=== PATIENT | male | born 1950 | race Caucasian/White ===

== ENCOUNTER 2018-03-01 13:55 | Emergency (ER) | payer OTHER ==
[~2018-03-01] VITALS: Ht 170.2 cm; Wt 90.0 kg
[~2018-03-01 13:55] MED LIST: AMOX500C PO; ATEN-102 PO; LINE150S PO; OMEP20TA PO
[2018-03-01 14:06] VITALS: BP 141/74; PULSE 80; RESP 17; TEMP 98.7; O2SAT 99
[2018-03-01 15:37] LABS: BASOPHIL # 0.1 TH/MM3 (0-0.2); BASOPHIL % 1.3 % (0.0-2.0); EOSINOPHIL # 0.4 TH/MM3 (0-0.4); EOSINOPHIL % 5.6 % (0.0-4.0); HEMATOCRIT 39.8 % (39.0-51.0); HEMOGLOBIN 14.2 GM/DL (13.0-17.0); LYMPHOCYTE # 2.5 TH/MM3 (1.0-4.8); MEAN CELL VOLUME 88.6 FL (80.0-100.0); MEAN CORPUSCULAR HEMOGLOBIN 31.6 PG (27.0-34.0); MEAN CORPUSCULAR HGB CONC 35.7 % (32.0-36.0); MEAN PLATELET VOLUME 7.7 FL (7.0-11.0); MONO % 9.1 % (0.0-8.0); MONOCYTE # 0.6 TH/MM3 (0-0.9); PLATELET COUNT 226 TH/MM3 (150-450); RED BLOOD COUNT 4.49 MIL/MM3 (4.50-5.90); RED CELL DISTRIBUTION WIDTH 13.4 % (11.6-17.2); WHITE BLOOD COUNT 6.6 TH/MM3 (4.0-11.0)
[2018-03-01 15:50] LABS: BILIRUBIN, URINE NEG (NEG); BLOOD, URINE NEG (NEG); GLUCOSE,URINE NEG (NEG); KETONE, URINE NEG (NEG); NITRITE,URINE NEG (NEG); URINE COLOR YELLOW (YELLW/STRAW); URINE LEUKOCYTE ESTERASE NEG (NEG)
[2018-03-01] MEDS ORDERED: OMEP20TA93 PO (16:05)
[2018-03-01] MEDS ORDERED: MELO15TA20 PO (16:05)
[2018-03-01] MEDS ORDERED: GABA300C5 PO (16:05)
[2018-03-01] MEDS ORDERED: ATEN50TA PO (16:05)
[2018-03-01] MEDS ORDERED: CYCL10TA PO (16:05)
[2018-03-01] MEDS ORDERED: SIMV40TA PO (16:05)
--- NOTE | 2018-03-01 16:07 | PD ---
HPI Chief Complaint: Complaint Time Seen by Provider: 15:59 Travel History International Travel<30 days: No Contact w/Intl Traveler<30days: No Traveled to known affect area: No History of Present Illness HPI She comes in complaining of 3 day history of left flank pain started in the back radiated towards the front. Patient states that he has had a previous history of kidney infections and 1 location of kidney stones. Patient denies any aggravating or alleviating factors. Patient denies any associated factors such as fever, rash, headache, neck pain, chest pain, or any radiation down legs , also denies any vomiting or diarrhea, also denies any urinary or fecal incontinence. Past medical history significant for cholecystectomy appendectomy, hiatal hernia , chronic back problems, hepatitis C history, depression history PFS Past Medical History Depression: Yes Cancer: Yes (colon) Cardiovascular Problems: No Diabetes: No Endocrine: No Genitourinary: No Hepatitis: Yes (HEPATITIS C) Hiatal Hernia: Yes Hypertension: Yes Immune Disorder: Yes (hep c hx) Musculoskeletal: Yes Neurologic: No Psychiatric: No Reproductive: No Respiratory: No Influenza Vaccination: Yes Past Surgical History Abdominal Surgery: Yes (appendectomy;gallbladder) Appendectomy: Yes () Cholecystectomy: Yes (1999) Social History Alcohol Use: No Tobacco Use: No Substance Use: No Allergies-Medications (Allergen,Severity, Reaction): Coded Allergies: *MDRO Multi-Drug Resistant Organism (Verified Adverse Reaction, Unknown, ) MRSA finger wound 08/2015 Reported Meds & Prescriptions Reported Meds & Active Scripts Active Reported Flexeril (Cyclobenzaprine HCl) 10 Mg Tab 10 Mg PO TID Gabapentin Unknown Strength Cap Unknown Dose PO TID Meloxicam 15 Mg Tab 15 Mg PO DAILY Simvastatin 40 Mg Tab 40 Mg PO HS Omeprazole 20 Mg Tab 20 Mg PO DAILY Atenolol 50 Mg Tab 50 Mg PO DAILY Review of Systems General / Constitutional: No: Fever Eyes: No: Visual changes HENT: No: Headaches Cardiovascular: No: Chest Pain or Discomfort Respiratory: No: Shortness of Breath Gastrointestinal: No: Abdominal Pain Genitourinary: Positive: Flank Pain Musculoskeletal: No: Pain Skin: No Rash Neurologic: No: Weakness Psychiatric: No: Depression Endocrine: No: Polydipsia Hematologic/Lymphatic: No: Easy Bruising Physical Exam Narrative GENERAL: Of note there is no evidence of any vesicular rash or anything to suggest shingles SKIN: Warm and dry. HEAD: Atraumatic. Normocephalic. EYES: Pupils equal and round. No scleral icterus. No injection or drainage. ENT: No nasal bleeding or discharge. Mucous membranes pink and moist. NECK: Trachea midline. No JVD. CARDIOVASCULAR: Regular rate and rhythm. RESPIRATORY: No accessory muscle use. Clear to auscultation. Breath sounds equal bilaterally. GASTROINTESTINAL: Abdomen soft, non-tender, nondistended. MUSCULOSKELETAL: Extremities without clubbing, cyanosis, or edema. No obvious deformities. NEUROLOGICAL: Awake and alert. No obvious cranial nerve deficits. Motor grossly within normal limits. Five out of 5 muscle strength in the arms and legs. Normal speech. PSYCHIATRIC: Appropriate mood and affect; insight and judgment normal. Data Data Last Documented VS Vital Signs Date Time Temp Pulse Resp B/P (MAP) Pulse Ox O2 Delivery O2 Flow Rate FiO2 03/01/18 14:06 98.7 80 17 141/74 (96) 99 Orders Orders Complete Blood Count With Diff (03/01/18 14:24) Comprehensive Metabolic Panel (03/01/18 14:24) Lipase (03/01/18 14:24) Urinalysis - C+S If Indicated (03/01/18 14:24) Ct Abd/Pel W/O Iv Contrast (03/01/18 16:08) Iv Access Insert/Monitor (03/01/18 16:08) Ecg Monitoring (03/01/18 16:08) Oximetry (03/01/18 16:08) NPO (03/01/18 16:08) Morphine Inj (Morphine Inj) (03/01/18 16:15) Ondansetron Inj (Zofran Inj) (03/01/18 16:15) Sodium Chloride 0.9% Flush (Ns Flush) (03/01/18 16:15) Ketorolac Inj (Toradol Inj) (03/01/18 16:15) Labs Laboratory Tests Test 03/01/18 14:35 White Blood Count 6.6 TH/MM3 Red Blood Count 4.49 MIL/MM3 Hemoglobin 14.2 GM/DL Hematocrit 39.8 % Mean Corpuscular Volume 88.6 FL Mean Corpuscular Hemoglobin 31.6 PG Mean Corpuscular Hemoglobin Concent 35.7 % Red Cell Distribution Width 13.4 % Platelet Count 226 TH/MM3 Mean Platelet Volume 7.7 FL Neutrophils (%) (Auto) 46.0 % Lymphocytes (%) (Auto) 38.0 % Monocytes (%) (Auto) 9.1 % Eosinophils (%) (Auto) 5.6 % Basophils (%) (Auto) 1.3 % Neutrophils # (Auto) 3.0 TH/MM3 Lymphocytes # (Auto) 2.5 TH/MM3 Monocytes # (Auto) 0.6 TH/MM3 Eosinophils # (Auto) 0.4 TH/MM3 Basophils # (Auto) 0.1 TH/MM3 CBC Comment DIFF FINAL Differential Comment Urine Color YELLOW Urine Turbidity CLEAR Urine pH 7.0 Urine Specific [place] 1.010 Urine Protein NEG mg/dL Urine Glucose (UA) NEG mg/dL Urine Ketones NEG mg/dL Urine Occult Blood NEG Urine Nitrite NEG Urine Bilirubin NEG Urine Urobilinogen LESS THAN 2.0 MG/DL Urine Leukocyte Esterase NEG Urine RBC LESS THAN 1 /hpf Microscopic Urinalysis Comment CULT NOT INDICATED Blood Urea Nitrogen 13 MG/DL Creatinine 0.95 MG/DL Random Glucose 109 MG/DL Total Protein 7.6 GM/DL Albumin 4.0 GM/DL Calcium Level 9.1 MG/DL Alkaline Phosphatase 70 U/L Aspartate Amino Transf (AST/SGOT) 31 U/L Alanine Aminotransferase (ALT/SGPT) 28 U/L Total Bilirubin 0.5 MG/DL Sodium Level 139 MEQ/L Potassium Level 4.0 MEQ/L Chloride Level 106 MEQ/L Carbon Dioxide Level 28.4 MEQ/L Anion Gap 5 MEQ/L Estimat Glomerular Filtration Rate 79 ML/MIN Lipase 140 U/L [facility] Medical Decision Making Medical Screen Exam Complete: Yes Emergency Medical Condition: Yes Medical Record Reviewed: Yes Differential Diagnosis Shingles versus Mando versus kidney stones versus colitis versus diverticulitis Narrative Course UA shows no evidence of any UTI CBC shows no leukocytosis, no anemia, and no abnormal platelet count, also no left shift. Chemistry shows normal electrolytes, normal kidney liver and pancreatic functions. Patient will be signed out to incoming physician pending CT results and disposition Diagnosis Primary Impression: LEFT Flank pain NOS Musa Crabtree MD Mar 01, 2018 16:07
[2018-03-01 16:11] LABS: AST (GOT) 31 U/L (15-37); BICARBONATE 28.4 MEQ/L (21.0-32.0); BLOOD UREA NITROGEN 13 MG/DL (7-18); CALCIUM 9.1 MG/DL (8.5-10.1); CHLORIDE 106 MEQ/L (98-107); CREATININE 0.95 MG/DL (0.60-1.30); GLOMERULAR FILTRATION RATE 79 ML/MIN (>89); GLUCOSE,RANDOM 109 MG/DL (74-106); SODIUM (NA) 139 MEQ/L (136-145)
[2018-03-01 16:14] LABS: ALKALINE PHOSPHATASE 70 U/L (45-117); ALT (GPT) 28 U/L (12-78); TOTAL BILIRUBIN ADULT 0.5 MG/DL (0.2-1.0); TOTAL PROTEIN 7.6 GM/DL (6.4-8.2)
[2018-03-01] MEDS ORDERED: ONDANSETRON HCL 4 MG/2 ML VIAL IVP ONE (16:15)
[2018-03-01] MEDS ORDERED: SODIUM CHLORIDE 0.9% FLUSH 10 ML FLUSH IV FLUSH PRN (16:15)
[2018-03-01] MEDS ORDERED: MORPHINE SULFATE 4 MG/ML INJ IV PUSH ONE (16:15)
[2018-03-01] MEDS ORDERED: KETOROLAC TROMETHAMINE 30 MG/ML (IVP) VIAL IV PUSH ONE (16:15)
[2018-03-01 17:00] VITALS: BP 158/78; PULSE 82; RESP 16; O2SAT 98
--- NOTE | 2018-03-01 17:53 | RADRPT ---
EXAM DATE/TIME: 03/01/2018 16:58 [place] COMPARISON: No previous studies available for comparison. INDICATIONS : Left flank pain and urinary frequency ORAL CONTRAST: No oral contrast ingested. RADIATION DOSE: 11.53 CTDIvol (mGy) MEDICAL HISTORY : Hypertension. Hernia, hiatal. Hepatitis C.Colon cancer SURGICAL HISTORY : Cholecystectomy. Appendectomy. ENCOUNTER: Initial ACUITY: 4 - 6 days PAIN SCALE: 8/10 LOCATION: Left Abdomen TECHNIQUE: Volumetric scanning of the abdomen and pelvis was performed. Using automated exposure control and ad justment of the mA and/or kV according to patient size, radiation dose was kept as low as reasonably achievable to obtain optimal diagnostic quality images. DICOM format image data is available electro nically for review and comparison. FINDINGS: LOWER LUNGS: The visualized lower lungs are clear. LIVER: Homogeneous density without lesion. There is no dilation of the biliary tree. No calcified gallston es. SPLEEN: Normal size without lesion. PANCREAS: Within normal limits. KIDNEYS: Normal in size and shape. There is a tiny 3 mm calcified nonobstructing right renal calculus. There is a complex cystic mass arising from the upper pole of the right kidney measuring 3.7 cm in size. Th ere is no hydronephrosis. ADRENAL GLANDS: Within normal limits. VASCULAR: There is no aortic aneurysm. BOWEL/MESENTERY: Uncomplicated colonic diverticulosis is noted. ABDOMINAL WALL: Within normal limits. RETROPERITONEUM: There is no lymphadenopathy. BLADDER: No wall thickening or mass. REPRODUCTIVE: The prostate is prominent with central calcifications. INGUINAL: There is no lymphadenopathy or hernia. MUSCULOSKELETAL: Degenerative changes are noted throughout the thoracolumbar spine. There is mild chronic compression deformity involving L1. CONCLUSION: 1. 3 mm calcified nonobstructing right renal calculus. 2. 3.7 cm upper pole complex cystic right renal mass. 3. No acute obstructive uropathy. 4. Enlarged prostate with central calcifications. 5. Uncomplicated colonic diverticulosis. 6. Degenerative changes throughout the thoracolumbar spine. 7. Mild chronic compression deformity involving L1. Gurpreet Vogel MD on March 01, 2018 at 17:42 Board Certified Radiologist. This report was verified electronically.
[2018-03-01 18:46] VITALS: RESP 16; O2SAT 98
--- NOTE | 2018-03-01 19:04 | PD ---
Data Data Last Documented VS Vital Signs Date Time Temp Pulse Resp B/P (MAP) Pulse Ox O2 Delivery O2 Flow Rate FiO2 03/01/18 18:46 16 98 Room Air 03/01/18 14:06 98.7 80 141/74 (96) Orders Orders Complete Blood Count With Diff (03/01/18 14:24) Comprehensive Metabolic Panel (03/01/18 14:24) Lipase (03/01/18 14:24) Urinalysis - C+S If Indicated (03/01/18 14:24) Ct Abd/Pel W/O Iv Contrast (03/01/18 16:08) Iv Access Insert/Monitor (03/01/18 16:08) Ecg Monitoring (03/01/18 16:08) Oximetry (03/01/18 16:08) NPO (03/01/18 16:08) Morphine Inj (Morphine Inj) (03/01/18 16:15) Ondansetron Inj (Zofran Inj) (03/01/18 16:15) Sodium Chloride 0.9% Flush (Ns Flush) (03/01/18 16:15) Ketorolac Inj (Toradol Inj) (03/01/18 16:15) Labs Laboratory Tests Test 03/01/18 14:35 White Blood Count 6.6 TH/MM3 Red Blood Count 4.49 MIL/MM3 Hemoglobin 14.2 GM/DL Hematocrit 39.8 % Mean Corpuscular Volume 88.6 FL Mean Corpuscular Hemoglobin 31.6 PG Mean Corpuscular Hemoglobin Concent 35.7 % Red Cell Distribution Width 13.4 % Platelet Count 226 TH/MM3 Mean Platelet Volume 7.7 FL Neutrophils (%) (Auto) 46.0 % Lymphocytes (%) (Auto) 38.0 % Monocytes (%) (Auto) 9.1 % Eosinophils (%) (Auto) 5.6 % Basophils (%) (Auto) 1.3 % Neutrophils # (Auto) 3.0 TH/MM3 Lymphocytes # (Auto) 2.5 TH/MM3 Monocytes # (Auto) 0.6 TH/MM3 Eosinophils # (Auto) 0.4 TH/MM3 Basophils # (Auto) 0.1 TH/MM3 CBC Comment DIFF FINAL Differential Comment Urine Color YELLOW Urine Turbidity CLEAR Urine pH 7.0 Urine Specific [place] 1.010 Urine Protein NEG mg/dL Urine Glucose (UA) NEG mg/dL Urine Ketones NEG mg/dL Urine Occult Blood NEG Urine Nitrite NEG Urine Bilirubin NEG Urine Urobilinogen LESS THAN 2.0 MG/DL Urine Leukocyte Esterase NEG Urine RBC LESS THAN 1 /hpf Microscopic Urinalysis Comment CULT NOT INDICATED Blood Urea Nitrogen 13 MG/DL Creatinine 0.95 MG/DL Random Glucose 109 MG/DL Total Protein 7.6 GM/DL Albumin 4.0 GM/DL Calcium Level 9.1 MG/DL Alkaline Phosphatase 70 U/L Aspartate Amino Transf (AST/SGOT) 31 U/L Alanine Aminotransferase (ALT/SGPT) 28 U/L Total Bilirubin 0.5 MG/DL Sodium Level 139 MEQ/L Potassium Level 4.0 MEQ/L Chloride Level 106 MEQ/L Carbon Dioxide Level 28.4 MEQ/L Anion Gap 5 MEQ/L Estimat Glomerular Filtration Rate 79 ML/MIN Lipase 140 U/L MDM Supervised Visit with CLAUDIA: No Narrative Course This case is checked out to me by the day shift physician. I have reevaluated the patient and reviewed the entirety of the workup. We discussed the incidental findings on his CT scan. There is no etiology of his 6 days of left flank pain but there are some incidental findings. He should review this with his [facility] and he agrees to do so. His urine is clean and labs are normal. When I reevaluated him he is sitting comfortably in the bed reading a book. He does not look to be in acute pain at this time. Stable for outpatient follow-up Diagnosis Primary Impression: LEFT Flank pain NOS Additional Instruction: Follow-up with [place] physician Med/Other Pt SpecificInfo: Other Disposition: 01 DISCHARGE HOME Condition: Stable Karson Gomse MD Mar 01, 2018 19:04
[2018-03-01 19:09] VITALS: BP 166/82
== END 2018-03-01 19:11 | disposition home or self-care (01) ==
LOC: NEPD 13:55
DX: R10.9 Unspecified abdominal pain (principal); N20.0 Calculus of kidney; I10 Essential (primary) hypertension; B19.20 Unspecified viral hepatitis C without hepatic coma; Z87.442 Personal history of urinary calculi
CPT/HCPCS: 74176; 80053; 81001; 83690; 85025; 96374; 96375; 99284; J1885; J2270; J2405

== ENCOUNTER 2019-01-04 10:15 | Inpatient (IN) ==
--- NOTE | 2019-01-04 10:32 | ED ---
HPI General Chief Complaint: Neuro Symptoms/Deficit Stated Complaint: Left side weakness complaint Time Seen by Provider: 01/04/19 10:31 Source: patient Mode of arrival: EMS Limitations: altered mental status History of Present Illness HPI Narrative: 68-year-old male presents for evaluation of 3-day of headache, left arm and leg weakness, generalized weakness. Location: Reports left arm and left leg Severity: moderate Quality: Reports weak Context: Reports sudden onset Associated symptoms: Reports confusion, headaches, nausea/vomiting and weakness ; Denies chest pain, cough, diaphoresis, fever/chills, vertigo, seizures, shortness of breath and syncope Related Data Home Medications Medication Instructions Recorded Confirmed atenolol 25 mg PO DAILY 01/04/19 01/04/19 gabapentin 600 mg PO TID 01/04/19 01/04/19 meloxicam 7.5 mg PO DAILY 01/04/19 01/04/19 omeprazole 20 mg PO DAILY 01/04/19 01/04/19 simvastatin 20 mg PO QPM 01/04/19 01/04/19 terazosin 4 mg PO DAILY 01/04/19 01/04/19 tramadol 50 mg PO Q6H PRN 01/04/19 01/04/19 zolpidem 10 mg PO HS 01/04/19 01/04/19 Allergies Allergy/AdvReac Type Severity Reaction Status Date / Time No Known Allergies Allergy Verified 01/04/19 10:31 Review of Systems ROS: all other systems reviewed are negative PMFSH History History Provided By: Patient Medical History Medical History Anxiety (Acute) BPH (benign prostatic hyperplasia) (Acute) Colon cancer (Acute) Depression (Acute) Diverticulosis (Acute) GERD (gastroesophageal reflux disease) (Acute) HTN (hypertension) (Acute) Osteoarthritis (Acute) Arthralgia (Acute) Carotid artery stenosis (Acute) Hepatitis C (Acute) Kidney stones (Acute) Lipoma (Acute) Surgical History Surgical History History of cholecystectomy (Acute) Social History Social History Substance History: No History of Abuse Smoking Status: Former smoker Tobacco Type: Cigarettes How Often Do You Have a Drink Containing Alcohol: Never Recent Travel in [facility] within the Last 8 Weeks: No Recent Out of Country Travel within the Last 8 Weeks: No Exam Narrative Exam Narrative: GENERAL: Awake, alert, difficulty following commands SKIN: Focused skin assessment warm/dry. HEAD: Atraumatic. Normocephalic. EYES: Pupils equal and round. No scleral icterus. No injection or drainage. ENT: No nasal bleeding or discharge. Mucous membranes pink and moist. NECK: Trachea midline. No JVD. CARDIOVASCULAR: Regular rate and rhythm. No murmur appreciated. RESPIRATORY: No accessory muscle use. Clear to auscultation. Breath sounds equal bilaterally. GASTROINTESTINAL: Abdomen soft, non-tender, nondistended. Hepatic and splenic margins not palpable. MUSCULOSKELETAL: No obvious deformities. No clubbing. No cyanosis. No edema. NEUROLOGICAL: Awake and alert. No obvious cranial nerve deficits. 3 out of 5 strength left upper and lower extremities and 4 out of 5 strength right upper and lower extremities, slight word finding difficulty Course Initial Documented Vital Signs Pulse Rate 63 01/04/19 10:26 Respiratory Rate 12 01/04/19 10:26 Blood Pressure 166/83 H 01/04/19 10:26 Pulse Oximetry 99 01/04/19 10:26 Last Documented Vital Signs Pulse Rate 63 01/04/19 14:04 Respiratory Rate 16 01/04/19 14:04 Blood Pressure 127/70 01/04/19 14:04 Pulse Oximetry 97 01/04/19 14:33 NIH Stroke Scale NIH Stroke Scale Level of Consciousness: 1-Drowsy Orientation Questions: 0-Answers both correct Responds to Commands: 0-Both tasks correct Gaze Eye Movement: 1-Partial gaze palsy Visual [place]: 1-Partial hemianopia Facial Movement: 2-Partial facial palsy Motor Functions Arm LEFT: 2-Falls before 10 seconds Motor Functions Arm RIGHT: 0-No drift Motor Functions Leg LEFT: 2-Falls before 5 seconds Motor Functions Leg RIGHT: 3-No effort against gravity Limb Ataxia: 0-No ataxia Sensory Loss: 1-Mild sensory loss Best Language: 1-Mild aphasia Articulation: 0-Normal Extinction or Inattention Sensory: 0-Absent Total: [address] [facility] Narrative Medical decision making narrative: 68-year-old male presents for evaluation of left-sided weakness for greater than 48 hours. Patient is outside the window for TPA and is also outside the window for thrombectomy. Patient also complains of headache and vertiginous symptoms. Concern for intracranial hemorrhage, CVA, vertebral artery dissection, carotid artery dissection. Symptoms could also represent complex migraine. CT head and CTA head and neck ordered. CT/CTA negative for acute findings. Laboratory work unremarkable. Will admit patient for MRI brain to rule out stroke. Patient also complains of back pain and family notes he may have had a syncopal episode. Medical Screen Exam Complete: Yes Emergency Medical Condition: Yes Lab Data Result diagrams: 01/04/19 10:40 01/04/19 10:40 Lab Results 01/04/19 01/04/19 01/04/19 Range/Units 10:40 10:40 10:40 WBC 7.7 (4.0-11.0) th/mm3 RBC 4.63 (4.50-5.90) mil/mm3 Hgb 14.7 (13.0-17.0) gm/dL Hct 42.8 (39.0-51.0) % MCV 92.5 (80.0-100.0) fL MCH 31.7 (27.0-34.0) pg MCHC 34.3 (32.0-36.0) % RDW 13.8 (11.6-17.2) % Plt Count 230 (150-450) th/mm3 MPV 7.3 (7.0-11.0) fL Neut % (Auto) 76.5 H (16.0-70.0) % Lymph % (Auto) 15.9 (9.0-44.0) % [place] % (Auto) 5.0 (0.0-8.0) % Eos % (Auto) 1.6 (0.0-4.0) % Baso % (Auto) 1.0 (0.0-2.0) % Neut # (Auto) 5.9 (1.8-7.7) th/mm3 Lymph # (Auto) 1.2 (1.0-4.8) th/mm3 [place] # (Auto) 0.4 (0.0-0.9) th/mm3 Eos # (Auto) 0.1 (0.0-0.4) th/mm3 Baso # (Auto) 0.1 (0.0-0.2) th/mm3 WBC Differential . Differential Comment Auto diff final PT 10.6 (9.8-11.6) sec INR 1.0 Ratio APTT 24.3 (23.4-31.7) sec Sodium 143 (136-145) meq/L Potassium 3.6 (3.5-5.1) meq/L Chloride 109 H (98-107) meq/L Carbon Dioxide 27.0 (21.0-32.0) meq/L Anion Gap 7 (5-15) meq/L BUN 24 H (7-18) mg/dL Creatinine 0.75 (0.60-1.30) mg/dL Estimated GFR Greater than 89 (>89) mL/min POC Glucose (68-110) mg/dl Random Glucose 135 H (74-106) mg/dL Calcium 8.9 (8.5-10.1) mg/dL Total Creatine Kinase 92 (39-308) U/L Troponin I Less than 0.02 L (0.02-0.05) ng/mL Urine Color (Yellw/Straw) Urine Clarity (Clear) Urine pH (5.0-8.5) Ur Specific [place] (1.002-1.035) Urine Protein (Neg-Trace) mg/dL Urine Glucose (UA) (Negative) mg/dL Urine Ketones (Negative) mg/dL Urine Occult Blood (Negative) Urine Nitrate (Negative) Urine Bilirubin (Negative) Urine Urobilinogen (Less than 2) mg/dL Ur Leukocyte Esterase (Negative) Urine RBC (0-3) /hpf Urine WBC (0-5) /hpf Amorphous Sediment (None) /hpf Urine Mucus (Occasional) /lpf Micro UA Comment Ur Microscopic Review Urine Culture Comments 01/04/19 01/04/19 Range/Units 10:45 10:49 WBC (4.0-11.0) th/mm3 RBC (4.50-5.90) mil/mm3 Hgb (13.0-17.0) gm/dL Hct (39.0-51.0) % MCV (80.0-100.0) fL MCH (27.0-34.0) pg MCHC (32.0-36.0) % RDW (11.6-17.2) % Plt Count (150-450) th/mm3 MPV (7.0-11.0) fL Neut % (Auto) (16.0-70.0) % Lymph % (Auto) (9.0-44.0) % [place] % (Auto) (0.0-8.0) % Eos % (Auto) (0.0-4.0) % Baso % (Auto) (0.0-2.0) % Neut # (Auto) (1.8-7.7) th/mm3 Lymph # (Auto) (1.0-4.8) th/mm3 [place] # (Auto) (0.0-0.9) th/mm3 Eos # (Auto) (0.0-0.4) th/mm3 Baso # (Auto) (0.0-0.2) th/mm3 WBC Differential Differential Comment PT (9.8-11.6) sec INR Ratio APTT (23.4-31.7) sec Sodium (136-145) meq/L Potassium (3.5-5.1) meq/L Chloride (98-107) meq/L Carbon Dioxide (21.0-32.0) meq/L Anion Gap (5-15) meq/L BUN (7-18) mg/dL Creatinine (0.60-1.30) mg/dL Estimated GFR (>89) mL/min POC Glucose 141 H (68-110) mg/dl Random Glucose (74-106) mg/dL Calcium (8.5-10.1) mg/dL Total Creatine Kinase (39-308) U/L Troponin I (0.02-0.05) ng/mL Urine Color Yellow (Yellw/Straw) Urine Clarity Hazy H (Clear) Urine pH 7.0 (5.0-8.5) Ur Specific [place] 1.025 (1.002-1.035) Urine Protein Negative (Neg-Trace) mg/dL Urine Glucose (UA) Negative (Negative) mg/dL Urine Ketones 20 (Negative) mg/dL Urine Occult Blood Negative (Negative) Urine Nitrate Negative (Negative) Urine Bilirubin Negative (Negative) Urine Urobilinogen 0.2 (Less than 2) mg/dL Ur Leukocyte Esterase Negative (Negative) Urine RBC Less than 1 (0-3) /hpf Urine WBC 1 (0-5) /hpf Amorphous Sediment Few H (None) /hpf Urine Mucus Few H (Occasional) /lpf Micro UA Comment Culture not ind Ur Microscopic Review Not Reportable Urine Culture Comments Culture not ind Imaging Data Radiologist's impression: Head CT 01/04/19 10:29 CONCLUSION: 1. Negative noncontrast CT brain. . Head CTA 01/04/19 10:29 CONCLUSION: 1. Negative CTA Head. . Neck CTA 01/04/19 10:29 CONCLUSION: 1. Negative CTA Carotid. ECG Data Attestation: I personally reviewed and interpreted this ECG as follows: Interpretation: Normal sinus rhythm, rate of 62, no ST or T wave changes Discharge Plan Discharge Disposition Patient Disposition: ED Admit(ED Internal Use Only) Discharge Condition Condition: Stable Discharge Order Discharge Orders: ED Use Only Admit Order (Routine); Ordered 01/04/19 Ordered By: Heather Ellis Discharge Details Diagnosis: Acute left-sided muscle weakness Physicians Team ED Provider: Heather Ellis Primary Care Provider: [facility]ician [facility] Attending Provider: Roxane Haley Other Providers: Brent Marcus Discharge Interventions Interventions: Vital Signs Last Done: 01/04/19 14:04 Status ED Status: Admitted Observation Patient
[2019-01-04 11:19] LABS: Baso # (Auto) 0.1 th/mm3 (0.0-0.2); Eos # (Auto) 0.1 th/mm3 (0.0-0.4); Eos % (Auto) 1.6 % (0.0-4.0); Hematocrit 42.8 % (39.0-51.0); Hemoglobin 14.7 gm/dL (13.0-17.0); Lymph # (Auto) 1.2 th/mm3 (1.0-4.8); Lymph % (Auto) 15.9 % (9.0-44.0); Mean Corpuscular HGB Conc 34.3 % (32.0-36.0); Mean Corpuscular Hemoglobin 31.7 pg (27.0-34.0); Mean Corpuscular Volume 92.5 fL (80.0-100.0); Mean Platelet Volume 7.3 fL (7.0-11.0); Mono # (Auto) 0.4 th/mm3 (0.0-0.9); Neut # (Auto) 5.9 th/mm3 (1.8-7.7); Neut % (Auto) 76.5 % (16.0-70.0); Platelet Count 230 th/mm3 (150-450); Red Blood Count 4.63 mil/mm3 (4.50-5.90); Red Cell Distribution Width 13.8 % (11.6-17.2); White Blood Count 7.7 th/mm3 (4.0-11.0)
[2019-01-04 11:31] LABS: Amorphous Sediment,Urine Few /hpf; Bilirubin,Urine Negative (Negative); Clarity,Urine Hazy (Clear); Color,Urine Yellow (Yellw/Straw); Glucose,Urine (UA) Negative (Negative); Leukocyte Esterase,Urine Negative (Negative); Mucus,Urine Few /lpf (Occasional); Nitrite,Urine Negative (Negative); Specific Gravity,Urine 1.025 (1.002-1.035)
[2019-01-04 11:33] LABS: Urobilinogen,Urine 0.2 mg/dL (Less than 2)
[2019-01-04 11:37] LABS: Activated Partial Thrombo Time 24.3 sec (23.4-31.7); Prothrombin Time 10.6 sec (9.8-11.6)
[2019-01-04 11:42] LABS: Anion Gap 7 meq/L (5-15); Blood Urea Nitrogen 24 mg/dL (7-18); Calcium 8.9 mg/dL (8.5-10.1); Chloride 109 meq/L (98-107); Glomerular Filtration Rate Greater Than 89 mL/min (>89); Glucose,Random 135 mg/dL (74-106); Potassium 3.6 meq/L (3.5-5.1); Sodium 143 meq/L (136-145)
[2019-01-04 11:57] LABS: Creatine Kinase 92 U/L (39-308)
--- NOTE | 2019-01-04 12:26 | CT ---
EXAM DATE: 01/04/2019 12:12 PM EST AGE/SEX: 68 years / Male INDICATIONS: Left sided weakness, nausea and headache since Tuesday. CLINICAL DATA: This is the patient's initial encounter. Patient reports that signs and symptoms have been present for 2 days and indicates a pain score of 9/10. MEDICAL/SURGICAL HISTORY: Hypertension. Carcinoma, colon. None. RADIATION DOSE: 52.83 CTDI (mGy) COMPARISON: No prior exams available for comparison. TECHNIQUE: CT of the head without contrast. Using automated exposure control and adjustment of the mA and/or kV according to patient size, radiation dose was kept as low as reasonably achievable to ob tain optimal diagnostic quality images. DICOM format image data is available electronically for revi ew and comparison. FINDINGS: Cerebrum: The ventricles are normal for age. No evidence of midline shift, mass lesion, hemorrhage or acute infarction. No extraaxial fluid collections are seen. Posterior Fossa: The cerebellum and brainstem are intact. The 4th ventricle is midline. The cerebe llopontine angle is unremarkable. Extracranial: The visualized portion of the orbits is intact. Skull: The calvaria is intact. No evidence of skull fracture. CONCLUSION: 1. Negative noncontrast CT brain. . Electronically signed by: Ian Ramirez MD Board Certified Radiologist 01/04/2019 12:25 PM EST
--- NOTE | 2019-01-04 13:07 | CT ---
EXAM DATE: 01/04/2019 12:32 PM EST AGE/SEX: 68 years / Male INDICATIONS: Left sided weakness with nausea and headache sine Tuesday. CLINICAL DATA: This is the patient's initial encounter. Patient reports that signs and symptoms have been present for 2 days and indicates a pain score of 9/10. MEDICAL/SURGICAL HISTORY: Hypertension. Carcinoma, colon. carotid stenosis None. RADIATION DOSE: 10.92 CTDI (mGy) ; Combined studies COMPARISON: [facility], CT HEAD W/O CONTRAST, 01/04/2019. . TECHNIQUE: Volumetric scanning was performed using a multi-row detector CT scanner during bolus infu arsh of 100 ml Omnipaque 350 (iohexol) nonionic water-soluble contrast as a cumulative dose for mult iple exams. The data was post processed with a variety of visualization algorithms including full v olume maximum intensity projection, multi-planar sliding thin slab reformation, curved planar reforma tion, and surface rendering techniques. Using automated exposure control and adjustment of the mA an d/or kV according to patient size, radiation dose was kept as low as reasonably achievable to obtain optimal diagnostic quality images. DICOM format image data is available electronically for review an d comparison. FINDINGS: There is excellent visualization of the major intracranial arteries out to the second-order branch ve ssels. There is no evidence for aneurysm, vessel truncation or stenosis, and no evidence for vascula r malformation. CONCLUSION: 1. Negative CTA Head. . Electronically signed by: Ian Barboza MD Board Certified Radiologist 01/04/2019 1:06 PM EST
--- NOTE | 2019-01-04 13:24 | CT ---
EXAM DATE: 01/04/2019 12:32 PM EST AGE/SEX: 68 years / Male INDICATIONS: Left sided weakness, nausea and headache since Tuesday. CLINICAL DATA: This is the patient's initial encounter. Patient reports that signs and symptoms have been present for 2 days and indicates a pain score of 9/10. MEDICAL/SURGICAL HISTORY: Hyperparathyroidism. Carcinoma, colon. carotid stenosis None. RADIATION DOSE: 10.92 CTDI (mGy) ; Combined studies COMPARISON: No prior exams available for comparison. TECHNIQUE: Volumetric scanning was performed using a multirow detector CT scanner during bolus infus ion of 100 ml Omnipaque 350 (iohexol) nonionic water-soluble contrast as a cumulative dose for multi ple exams. The data was postprocessed with a variety of visualization algorithms including full-vol ume maximum intensity projection, multiplanar sliding thin-slab reformation, curved-planar reformatio n, and surface-rendering techniques. Using automated exposure control and adjustment of the mA and/o r kV according to patient size, radiation dose was kept as low as reasonably achievable to obtain opt imal diagnostic quality images. DICOM format image data is available electronically for review and c omparison. FINDINGS: Aortic Arch: There is a three-vessel origin of the great vessels from the aorta. No evidence of ost ial narrowing Right Carotid: The common carotid artery is intact. The carotid bulb has a normal configuration wit hout ulceration or narrowing. The internal carotid artery lumen is smooth without stenosis. The ext ernal carotid artery is intact. Left Carotid: The common carotid artery is intact. The carotid bulb has a normal configuration with out ulceration or narrowing. The internal carotid artery lumen is smooth without stenosis. The exte rnal carotid artery is intact. Vertebrals: The vertebral arteries have a symmetric diameter. No stenotic lesions are seen. Percent stenosis is calculated using the diameter of the stenotic region over the diameter of the nor mal distal internal carotid artery. CONCLUSION: 1. Negative CTA Carotid. Electronically signed by: Ian Barboza MD Board Certified Radiologist 01/04/2019 1:23 PM EST
[2019-01-04] MEDS ORDERED: Aspirin 325 MG Tablet PO ONE (14:18)
[2019-01-04] MEDS ORDERED: Acetaminophen 325 MG Tablet PO PRN (14:31)
[2019-01-04] MEDS ORDERED: Bisacodyl 10 MG Supp RECTAL PRN (14:31)
--- NOTE | 2019-01-04 14:31 | P.HPIM ---
History of Present Illness Primary Care Physician: [facility] Chief Complaint: left sided weakness History of Present Illness: 68 yo male with multiple medical problems came for eval of left sided weakness for the past 3 days progressively getting worse. Patient complaints of 3-day left arm and leg weakness, generalized weakness and headache associated since morning. Weakness seems more in the left leg than the left arm. He also says his left leg feels numb and " buzzing". Says he doesnt have a h/o migraine headaches and is new for him. Says headache is on the top of his head and around the right eye , no change in vision. There is associated confusion, headaches, nausea/vomiting. Denies chest pain, cough, diaphoresis, fever/chills, vertigo, seizures, shortness of breath and syncope. No n/v/d/c. Patient also complaints of chronic back pain. Review of Systems Review of Systems: all other systems reviewed are negative [facility] Medical History Medical History Anxiety (Acute) BPH (benign prostatic hyperplasia) (Acute) Colon cancer (Acute) Depression (Acute) Diverticulosis (Acute) GERD (gastroesophageal reflux disease) (Acute) HTN (hypertension) (Acute) Osteoarthritis (Acute) Arthralgia (Acute) Carotid artery stenosis (Acute) Hepatitis C (Acute) Kidney stones (Acute) Lipoma (Acute) Surgical History Surgical History History of cholecystectomy (Acute) Social History Social History Substance History: No History of Abuse Smoking Status: Former smoker Tobacco Type: Cigarettes How Often Do You Have a Drink Containing Alcohol: Never Recent Travel in [facility] within the Last 8 Weeks: No Recent Out of Country Travel within the Last 8 Weeks: No Immunization History Tetanus Immunization: <5 Years Medications and Allergies Allergies Allergy/AdvReac Type Severity Reaction Status Date / Time No Known Allergies Allergy Verified 01/04/19 10:31 Home Medications Medication Instructions Recorded Confirmed Type atenolol 25 mg PO DAILY 01/04/19 01/04/19 History gabapentin 600 mg PO TID 01/04/19 01/04/19 History meloxicam 7.5 mg PO DAILY 01/04/19 01/04/19 History omeprazole 20 mg PO DAILY 01/04/19 01/04/19 History simvastatin 20 mg PO QPM 01/04/19 01/04/19 History terazosin 4 mg PO DAILY 01/04/19 01/04/19 History tramadol 50 mg PO Q6H PRN 01/04/19 01/04/19 History zolpidem 10 mg PO HS 01/04/19 01/04/19 History Active Medications: Active Medications Sodium Chloride (Ns Flush) 2 ml IV.FLUSH PRN PRN PRN Reason: FLUSH AFTER USING IV ACCESS Last Admin: 01/04/19 14:03 Dose: 2 ml Physical Exam Vital signs: Vital Signs 01/04/19 10:26 01/04/19 10:30 01/04/19 10:31 Pulse Rate 63 63 64 Respiratory Rate 12 17 Blood Pressure 166/83 H Pulse Oximetry 99 99 99 01/04/19 11:53 01/04/19 13:35 01/04/19 14:04 Pulse Rate 68 63 Respiratory Rate 16 16 Blood Pressure 123/64 127/70 Pulse Oximetry 99 100 98 Intake & Output 01/03/19 01/04/19 01/04/19 18:59 06:59 18:59 Weight 74.389 kg Results Labs CBC & Chem 7: 01/04/19 10:40 01/04/19 10:[address] 01/04/19 10:29 CONCLUSION: 1. Negative noncontrast CT brain. . Head CTA 01/04/19 10:29 CONCLUSION: 1. Negative CTA Head. . Neck CTA 01/04/19 10:29 CONCLUSION: 1. Negative CTA Carotid. Caprini VTE Risk Assessment Caprini VTE Risk Assessment: Moderate/High Risk (score >= 2) Caprini Risk Assessment Model: Point Value = 1 Point Value = 2 Point Value = 3 Point Value = 5 Age 41-60 Minor surgery BMI > 25 kg/m2 Swollen legs Varicose veins or History of unexplained or recurrent spontaneous Oral contraceptives or hormone replacement Sepsis (< 1 month) Serious lung disease, including pneumonia (< 1 month) Abnormal pulmonary function Acute myocardial infarction Congestive heart failure (< 1 month) History of inflammatory bowel disease Medical patient at bed rest Age 61-74 Arthroscopic surgery Major open surgery (> 45 min) Laparoscopic surgery (> 45 min) Malignancy Confined to bed (> 72 hours) Immobilizing plaster cast Central venous access Age >= 75 History of VTE Family history of VTE Factor V Leiden Prothrombin [id number] Lupus anticoagulant Anticardiolipin antibodies Elevated serum homocysteine Heparin-induced thrombocytopenia Other congenital or acquired thrombophilia Stroke (< 1 month) Elective arthroplasty Hip, pelvis, or leg fracture Acute spinal cord injury (< 1 month) Prophylaxis Regimen: Total Risk Factor Score Risk Level Prophylaxis Regimen 0-1 Low Early ambulation 2 Moderate Order ONE of the following: *Sequential Compression Device (SCD) *Heparin 5000 units SQ BID 3-4 Higher Order ONE of the following medications: *Heparin 5000 units SQ TID *Enoxaparin/Lovenox 40 mg SQ daily (WT < 150 kg, CrCl > 30 mL/min) *Enoxaparin/Lovenox 30 mg SQ daily (WT < 150 kg, CrCl > 10-29 mL/min) *Enoxaparin/Lovenox 30 mg SQ BID (WT < 150 kg, CrCl > 30 mL/min) AND/OR *Sequential Compression Device (SCD) 5 or more Highest Order ONE of the following medications: *Heparin 5000 units SQ TID (Preferred with Epidurals) *Enoxaparin/Lovenox 40 mg SQ daily (WT < 150 kg, CrCl > 30 mL/min) *Enoxaparin/Lovenox 30 mg SQ daily (WT < 150 kg, CrCl > 10-29 mL/min) *Enoxaparin/Lovenox 30 mg SQ BID (WT < 150 kg, CrCl > 30 mL/min) AND *Sequential Compression Device (SCD) Assessment and Plan Plan 68 yo male with multiple medical problems came for eval of left sided weakness for the past 3 days progressively getting worse. Patient complaints of 3-day of headache, left arm and leg weakness, generalized weakness and associated confusion. . Left sided weakness x 3 days r/o CVA HTN (hypertension) H/of Anxiety / depression BPH Colon cancer GERD (gastroesophageal reflux disease) CT/CTA head and CTA neck reviewed no acute findings Consult neuro EKG reviewed Check A1c and lipid profile Monitor on telemetry Restart home meds as appropriate DVT ppx scd/teds/ lovenox Discussed with the patient, family at bedside, nurse
[2019-01-04] MEDS: Enoxaparin Inj 40 MG/0.4 ML Syringe SQ SCH (15:36)
[2019-01-04] MEDS: Sod Chloride 0.9% Inj 1,000 ML IV.CONT SCH (15:36)
[2019-01-04 15:58] LABS: Chol/HDL Ratio 2.95 Ratio; HDL Cholesterol 50.8 mg/dL (40.0-60.0)
[2019-01-04 16:47] LABS: Hemoglobin A1c 5.8 % (4.3-6.0)
[2019-01-04] MEDS: Gabapentin 300 MG Capsule PO SCH ×2 (17:36→19:34)
[2019-01-04] MEDS ORDERED: Gadobutrol PF 7.5 MMOL/7.5 ML Vial (for RAD) IV.SIG ONE (18:10)
--- NOTE | 2019-01-04 18:33 | MR ---
EXAM DATE: 01/04/2019 6:25 PM EST AGE/SEX: 68 years / Male INDICATIONS: Mass. Left sided weakness, dizziness, and headaches for three days. CLINICAL DATA: This is the patient's initial encounter. Patient reports that signs and symptoms have been present for 3 days and indicates a pain score of 8/10. MEDICAL/SURGICAL HISTORY: Carcinoma, colon. Cholecystectomy. Appendectomy. COMPARISON: [facility], CTA NECK W CONTRAST W 3D, 01/04/2019. . TECHNIQUE: Multiplanar, multisequence MRI examination of the cervical spine was performed without an d with 7 ml Gadavist (gadobutrol) contrast as a single exam dose. FINDINGS: VERTEBRAE: Normal vertebral body height. Homogeneous marrow signal. ALIGNMENT: Slight loss of normal cervical lordosis. Sagittal alignment is otherwise maintained. CORD: Normal configuration and signal. POST FOSSA: The cerebellar tonsils are normal in position. POST-CONTRAST: No abnormal areas of enhancement are seen. C2-C3: Mild left facet hypertrophy. No significant central canal or neural foraminal stenosis. C3-C4: Minimal bilateral uncovertebral osteophytes. No central canal or neural foraminal stenosis. C4-C5: Mild posterior disc osteophytes with mild bilateral facet arthropathy. No significant central canal stenosis. Mild left and [id number] right neural foraminal narrowing. C5-C6: Mild posterior disc osteophytes with mild bilateral facet arthropathy. No significant central canal stenosis. Mild left and moderate severe right neural foraminal narrowing. C6-C7: Posterior disc osteophytes with superimposed central broad-based posterior disc protrusion. Mi ld bilateral facet arthropathy. Mild effacement anterior thecal sac with residual CSF signal anterior to the cord. Moderate bilateral neural foraminal narrowing. C7-T1: No epidural impressions seen. CONCLUSION: 1. No significant abnormal enhancement or evidence for mass as questioned. 2. Multilevel degenerative spondylosis of the cervical spine most notably at C5-6 and C6-7 with resu ltant moderate to severe neural foraminal narrowing at both levels. 3. Please see above for detailed description of each level. Electronically signed by: Akash Britton MD Board Certified Radiologist 01/04/2019 6:32 PM EST
--- NOTE | 2019-01-04 18:35 | MR ---
EXAM DATE: 01/04/2019 6:28 PM EST AGE/SEX: 68 years / Male INDICATIONS: CVA. Left sided weakness, dizziness, and headaches for three days. CLINICAL DATA: This is the patient's initial encounter. Patient reports that signs and symptoms have been present for 3 days and indicates a pain score of 8/10. MEDICAL/SURGICAL HISTORY: Carcinoma, colon. Appendectomy. Cholecystectomy. COMPARISON: [facility] – [place], [place], CT HEAD W/O CONTRAST, 01/04/2019. . TECHNIQUE: Multiplanar, multisequence examination of the brain was performed without and with 7 ml Ga davist (gadobutrol) contrast as a single exam dose. FINDINGS: Cerebrum: The ventricles are normal for age. No evidence of midline shift, mass lesion, hemorrhage or acute infarction. No extraaxial fluid collections are seen. The pituitary gland and suprasellar cistern are normal in configuration. White Matter: Minimal periventricular white matter T2 prolongation. Posterior Fossa: The cerebellum and brainstem are intact. The 4th ventricle is midline. The cerebel lopontine angle is unremarkable. The cerebellar tonsils are normal in position. Diffusion Imaging: No focal areas of restricted diffusion are seen. No evidence of acute infarction . Extracranial: The visualized portions of the orbits and paranasal sinuses are unremarkable. Post Contrast: No abnormal areas of parenchymal or dural enhancement. No evidence of blood-brain ba rrier breakdown. CONCLUSION: 1. Minimal periventricular ischemic white matter demyelination. 2. Otherwise, unremarkable MRI examination of the brain. 3. Specifically, no acute infarction, mass or hemorrhage. Electronically signed by: Akash Britton MD Board Certified Radiologist 01/04/2019 6:34 PM EST
[2019-01-04 19:47] LABS: Alanine Aminotransferase 33 U/L (12-78); Albumin 3.6 g/dL (3.4-5.0); Aspartate Aminotransferase 27 U/L (15-37)
[2019-01-04 20:02] LABS: Alkaline Phosphatase 58 U/L (45-117); Total Protein 6.8 g/dL (6.4-8.2)
[2019-01-04 20:12] LABS: Vitamin B12 853 pg/mL (193-986)
[2019-01-04] MEDS: Senna/Docusate Sodium 8.6/50 MG Tablet PO SCH (20:13)
[2019-01-05] MEDS: Sod Chloride 0.9% Inj 1,000 ML IV.CONT SCH ×2 (01:38→12:01)
[2019-01-05] MEDS ORDERED: Morphine Sulfate Inj 2 MG/ML Vial IV.PUSH ONE (03:59)
[2019-01-05 04:40] LABS: Baso # (Auto) 0.1 th/mm3 (0.0-0.2); Baso % (Auto) 1.4 % (0.0-2.0); Eos # (Auto) 0.4 th/mm3 (0.0-0.4); Eos % (Auto) 6.6 % (0.0-4.0); Hematocrit 39.6 % (39.0-51.0); Hemoglobin 13.6 gm/dL (13.0-17.0); Lymph # (Auto) 2.2 th/mm3 (1.0-4.8); Lymph % (Auto) 35.2 % (9.0-44.0); Mean Corpuscular HGB Conc 34.3 % (32.0-36.0); Mean Corpuscular Hemoglobin 31.1 pg (27.0-34.0); Mean Corpuscular Volume 90.8 fL (80.0-100.0); Mean Platelet Volume 7.3 fL (7.0-11.0); Mono # (Auto) 0.6 th/mm3 (0.0-0.9); Neut # (Auto) 2.9 th/mm3 (1.8-7.7); Neut % (Auto) 46.8 % (16.0-70.0); Platelet Count 201 th/mm3 (150-450); Red Blood Count 4.36 mil/mm3 (4.50-5.90); Red Cell Distribution Width 14.1 % (11.6-17.2); White Blood Count 6.2 th/mm3 (4.0-11.0)
[2019-01-05 05:02] LABS: Anion Gap 6 meq/L (5-15); Carbon Dioxide 26.3 meq/L (21.0-32.0); Chloride 111 meq/L (98-107); Cholesterol 125 mg/dL (120-200); Glomerular Filtration Rate Greater Than 89 mL/min (>89); Glucose,Random 89 mg/dL (74-106); Potassium 4.1 meq/L (3.5-5.1); Sodium 143 meq/L (136-145); Triglycerides 44 mg/dL (42-150)
[2019-01-05 05:24] LABS: Blood Urea Nitrogen 25 mg/dL (7-18); Chol/HDL Ratio 2.97 Ratio; Creatine Kinase 78 U/L (39-308); LDL Cholesterol,Calculated 74 mg/dL (0-99)
--- NOTE | 2019-01-05 08:28 | MB ---
cc: Brent Milligan MD DATE: 01/05/2019 HISTORY OF PRESENT ILLNESS: A 68-year-old right-handed man with hypertension; hypercholesterolemia; hepatitis C, which he has been treated for; kidney stones; asthma; fracture in his low back from a fall off a roof in 2006 and also in his neck; colon cancer polyps that were removed in 2012, no radiation or resection. He has had low back pain and injections; and on Tuesday, he turned the wrong way and had increased back pain 08/30. Then on Tuesday, he had a headache right frontal region, some dizziness, vertigo, and then noticed that his left leg felt numb and then he fell with the vertigo. He was admitted yesterday with what was thought to be left-sided weakness. PAST MEDICAL HISTORY: Anxiety, BPH, colon cancer, depression, diverticulosis, GERD, hypertension, osteoarthritis, arthralgias, carotid artery stenosis, hepatitis C, kidney stones, lipoma as above. MEDICATIONS AT HOME: He is on zolpidem, tramadol 50 q.6 p.r.n., terazosin, simvastatin, omeprazole, meloxicam, gabapentin 600 t.i.d., atenolol. PHYSICAL EXAMINATION: VITAL SIGNS: On exam, sinus rhythm, afebrile, 100/53, 74, 20. NECK: There are no carotid bruits. HEART: Regular rate and rhythm. I did not detect a murmur. NEUROLOGIC: Pupils are equal. Visual ross are full. Extraocular movements intact without nystagmus. Face is symmetric with decreased sensation on the left compared to the right. Pinprick was intact in the occiput on the left. There is no drift. He has normal strength in bilateral deltoid, triceps, finger extensors, iliopsoas, tibialis anterior. DTRs are 2-3+ symmetric at the knees, trace in the upper extremities. Toes withdrew bilaterally. There was no ankle clonus. Tone was normal throughout. Pinprick is lost in the left leg but intact in the left hand. There is no pin level, but he seems to feel pin slightly less on the left side of his posterior thorax. He is not ataxic on [id number]. Speech is fluent. He is not aphasic. DIAGNOSTIC DATA: CBC was normal. Sedimentation rate 3. UA negative. Basic metabolic profile was normal. Calcium 8. LFTs normal. Ammonia normal. CPK, troponin, LDL, B12 all normal. CRP is normal. Coags normal. Sedimentation rate normal. MRI of the cervical spine, which was read as negative. No cord compression. Spondylosis C5, 6, 7. There is no cord compression on the cervical MR on my review. Brain MRI, white matter changes only, otherwise negative. Review of the films, mastoids are clear. Brain images are normal except the ventricles are slightly more prominent than I would like to see. No infarct is noted. No tumors are seen. CTA of the head and neck were normal. Head CTA also normal. No vertebrobasilar disease noted. CT of the brain normal. IMPRESSION AND PLAN: Not sure why the left side of his face is numb. I do not see anything on the MRI for that. His arteries look okay. He has got some pain around his thoracic region now. We will check an MRI of the thoracic and lumbosacral spine. The vertigo is probably a peripheral vestibulopathy. He has a history of hearing loss in the left ear. In fact, he cannot hear finger rub in the left ear, but he can on the right. That is longstanding and he has got some tinnitus. My overall impression was his main problem was the new low back pain and the vertigo. The numbness in his legs is probably from the low back. He has had that before, though it had gone away and now it is back. Make sure there is no thoracic myelopathy. I am not sure why he has got the left-sided facial numbness. We could recheck an MRI of the brain to make sure we did not miss anything as far as the stroke goes, though I think unlikely. To make sure there is nothing in the brainstem causing left face numbness and vertigo, though he really has more of a left face thoracic region and legs, sparing the arm. MD KERRI Caldwell/sondra , 07:49 AM , 07:58 AM
[2019-01-05] MEDS: Atenolol 25 MG Tablet PO SCH (08:40)
[2019-01-05] MEDS: Pantoprazole Sodium 20 MG DR Tablet PO SCH (08:40)
[2019-01-05] MEDS: Senna/Docusate Sodium 8.6/50 MG Tablet PO SCH ×2 (08:40→21:29)
[2019-01-05] MEDS: Gabapentin 300 MG Capsule PO SCH ×2 (08:40→12:00)
--- NOTE | 2019-01-05 10:00 | MR ---
EXAM DATE: 01/05/2019 9:52 AM EST AGE/SEX: 68 years / Male INDICATIONS: Weakness. Low back pain. CLINICAL DATA: This is the patient's initial encounter. Patient reports that signs and symptoms have been present for 1 day and indicates a pain score of 6/10. MEDICAL/SURGICAL HISTORY: Carcinoma, colon. Appendectomy. Cholecystectomy. COMPARISON: No prior exams available for comparison. TECHNIQUE: Multiplanar, multisequence MRI of the lumbar spine was performed without contrast. Patie nt was scanned in a sitting position; neutral, flexion, and extension scans were performed in the sa gittal plane. FINDINGS: Vertebra: There is chronic primary bony degenerative changes throughout the lumbar spine. There is c hronic mild loss of height of L1 with no abnormal bone marrow edema. There is mild retrolisthesis of L1 over L2 by approximately 3 mm. No acute or subacute compression fracture injuries are demonstrated . There is a hemangioma in the body of L3. There is disc dehydration at essentially all levels with d isc space narrowing at L1-2 and L2-3. There are some cysts associated with the right kidney measuring approximately 3 cm and 2 cm. Conus: Normal level and configuration. T12-L1: Mild broad-based bulging. The neural foramina are patent bilaterally. L1-L2: Mild broad-based bulging. The neural foramina appear patent bilaterally. There is bilateral facet arthritis. L2-L3: Mild diffuse broad-based bulging. The neural foramina are patent bilaterally. There is bilat eral facet arthritis. L3-L4: Mild diffuse broad-based bulging. Mild narrowing of the neural foramina bilaterally. Bilater al facet arthritis. L4-L5: There is a combination of diffuse broad-based bulging and right paracentral disc protrusion/ extrusion with some slight extension behind the body of L5 on the right side. There is narrowing of t he neural foramina bilaterally. There is prominent bilateral facet arthritis. There is hypertrophy li gamentum flavum. No significant spinal canal stenosis. L5-S1: The thecal sac has a normal diameter. No evidence of disc bulge or protrusion. There is mil d narrowing of the left neural foramina from facet arthritis. The right neural foramina is patent. Th ere is bilateral facet arthritis. CONCLUSION: 1. There is a combination of diffuse broad-based bulging and right paracentral disc protrusion/extru arsh with some slight extension of disc material behind the body of L5 on the right. 2. There is broad-based bulging at multiple levels including T12-L1, L1-L2, L2-L3 and L3-L4. 3. There is bilateral facet arthritis at multiple levels. 4. No significant spinal canal stenosis. 5. Primary bony degenerative changes with disc degeneration and disc space narrowing at multiple lev els. There is some mild chronic loss of height of L1 with no abnormal bone marrow edema. Electronically signed by: Darrell Herrera MD Board Certified Radiologist 01/05/2019 9:58 AM EST
--- NOTE | 2019-01-05 10:06 | MR ---
EXAM DATE: 01/05/2019 9:50 AM EST AGE/SEX: 68 years / Male INDICATIONS: Weakness. Low back pain. CLINICAL DATA: This is the patient's initial encounter. Patient reports that signs and symptoms have been present for 1 day and indicates a pain score of 0/10. MEDICAL/SURGICAL HISTORY: Carcinoma, colon. Appendectomy. Cholecystectomy. COMPARISON: No prior exams available for comparison. TECHNIQUE: Multiplanar, multisequence MRI of the thoracic spine was performed. FINDINGS: Vertebrae: Normal vertebral body height. Homogeneous marrow signal. There are primary bony degenera tive changes noted throughout the entire thoracic spine. No acute or subacute compression fracture in juries are demonstrated. There is disc degeneration with disc space narrowing at multiple levels. Alignment: Normal. Cord: Normal position and configuration. T1-T2: Focal mild right paracentral bulging. The neural foramina appear patent. T2-T3: Mild right paracentral bulging and left paracentral bulging. The neural foramina appear paten t. T3-T4: Small left paracentral bulging. The neural foramina appear patent. T4-T5: The thecal sac has a normal diameter. No evidence of disc bulge or protrusion. T5-T6: The thecal sac has a normal diameter. No evidence of disc bulge or protrusion. T6-T7: Focal mild left paracentral bulging. The neural foramina appear patent. T7-T8: The thecal sac has a normal diameter. No evidence of disc bulge or protrusion. T8-T9: The thecal sac has a normal diameter. No evidence of disc bulge or protrusion. T9-T10: Left paracentral disc protrusion. There is narrowing of the left neural foramina. The right neural foramina appears patent. T10-T11: Moderate broad-based bulging with focal left paracentral disc protrusion. There is narrowin g of the neural foramina bilaterally. There is facet arthritis. These factors are causing focal moder ate spinal canal stenosis. T11-T12: Mild broad-based bulging. The neural foramina appear patent. T12-L1: The thecal sac has a normal diameter. No evidence of disc bulge or protrusion. CONCLUSION: 1. Focal moderate spinal canal stenosis is noted at T10-T11. There is moderate broad-based bulging a t this level with focal left paracentral disc protrusion. 2. Left paracentral disc protrusion at T9-T10 3. Focal mild right paracentral bulging T1-T2. 4. Mild right paracentral bulging and left paracentral bulging at T2-T3 5. Small left paracentral bulging T3-T4. 6. Focal mild left paracentral bulging T6-T7 and mild broad-based bulging T11-T12 Electronically signed by: Darrell Herrera MD Board Certified Radiologist 01/05/2019 10:05 AM EST
--- NOTE | 2019-01-05 10:19 | MR ---
EXAM DATE: 01/05/2019 10:10 AM EST AGE/SEX: 68 years / Male INDICATIONS: Left sided weakness. Low back pain. CLINICAL DATA: This is the patient's initial encounter. Patient reports that signs and symptoms have been present for 1 day and indicates a pain score of 0/10. MEDICAL/SURGICAL HISTORY: Carcinoma, colon. Cholecystectomy. Appendectomy. COMPARISON: [facility] – [place] W & W/O CONTRAST, 01/04/2019. . TECHNIQUE: Multiplanar, multisequence examination of the brain was performed without contrast. FINDINGS: Cerebrum: The ventricles are normal for age. No evidence of midline shift, mass lesion, hemorrhage or acute infarction. No extraaxial fluid collections are seen. The pituitary gland and suprasellar cistern are normal in configuration. White Matter: No significant signal abnormalities are seen in the white matter. Posterior Fossa: The cerebellum and brainstem are intact. The 4th ventricle is midline. The cerebel lopontine angle is unremarkable. The cerebellar tonsils are normal in position. Diffusion Imaging: No focal areas of restricted diffusion are seen. No evidence of acute infarction . Extracranial: The visualized portions of the orbits and paranasal sinuses are unremarkable. No new or significant changes compared to the prior exam. CONCLUSION: 1. Unremarkable and stable MRI of the brain compared to the prior examination of 01/04/2019. Electronically signed by: Darrell Herrera MD Board Certified Radiologist 01/05/2019 10:18 AM EST
--- NOTE | 2019-01-05 12:46 | P.PNIM ---
Subjective Interval history: Follow up on patient with left sided weakness. Patient seen and examined. Patient reports improvement in his left sided facial numbness. He denies any headache or vision changes. He does complain of dizziness with standing. He complains of left sided mid thoracic paraspinal pain. He also reports low back pain which he says is chronic. He denies any fever or chills. He denies any chest pain or dyspnea. He denies any N/V or abdominal pain. Physical Exam Vital signs: Vital Signs 01/04/19 13:35 01/04/19 14:04 01/04/19 14:33 Temperature Pulse Rate 68 63 Respiratory Rate 16 16 Blood Pressure 123/64 127/70 Pulse Oximetry 100 98 97 01/04/19 15:42 01/04/19 20:00 01/05/19 00:00 Temperature 98 F 97.5 F L Pulse Rate 64 67 74 Respiratory Rate 16 16 20 Blood Pressure 117/62 118/67 100/53 L Pulse Oximetry 98 95 96 01/05/19 02:40 01/05/19 04:00 01/05/19 08:00 Temperature 97.8 F 97.8 F 98.3 F Pulse Rate 60 65 67 Respiratory Rate 20 18 18 Blood Pressure 120/63 121/73 137/73 Pulse Oximetry 97 97 96 01/05/19 08:10 01/05/19 12:00 Temperature 97.4 F L Pulse Rate 63 72 Respiratory Rate 17 Blood Pressure 114/60 Pulse Oximetry 95 Intake & Output 01/04/19 01/05/19 01/05/19 18:59 06:59 18:59 Intake Total 1959 1000 / 1000 Output Total 120 / 120 Balance 1840 / 1840 1000 / 1000 Weight 76.8 kg 88.8 kg Intake: IV 1000 / 1000 1000 / 1000 NS Inj 1,000 ML @ 100 mls/hr IV 1000 / 1000 1000 / 1000 .CONT .Q10H [facility] Rx#:[id number] Oral 960 / 960 Output: Urine 120 / 120 Other: # Voids 2 Weight On Admission 76.8 kg Narrative: GENERAL: WDWN male patient, INAD. Awake and alert. Sitting up in bedside chair working with therapy. SKIN: Warm and dry. HEAD: Atraumatic. Normocephalic. No facial asymmetry noted. EYES: Pupils equal and round. No scleral icterus. ENT: No nasal bleeding or discharge. Mucous membranes pink and moist. NECK: Trachea midline. CARDIOVASCULAR: Regular rate and rhythm. RESPIRATORY: No accessory muscle use. Clear to auscultation. Breath sounds equal bilaterally. GASTROINTESTINAL: Abdomen soft, non-tender, nondistended. MUSCULOSKELETAL: Extremities without clubbing, cyanosis, or edema. +tenderness to palpation left mid thoracic paraspinal muscles. NEUROLOGICAL: Awake and alert. No obvious cranial nerve deficits. Motor grossly within normal limits. Normal speech. PSYCHIATRIC: Appropriate mood and affect; insight and judgment normal. Results Labs CBC & Chem 7: 01/05/19 04:26 01/05/19 04:26 Labs: Microbiology 01/04/19 10:49 Nasal Wash Influenza Types A,B Antigen - Final Negative for FLU A and B antigen Infection due to influenza A or B cannot be ruled out since the antigen present in the sample may be below the detection limit of the test. Imaging Imaging: Impressions Head CTA 01/04/19 10:29 CONCLUSION: 1. Negative CTA Head. . Neck CTA 01/04/19 10:29 CONCLUSION: 1. Negative CTA Carotid. Head MRI 01/04/19 17:08 CONCLUSION: 1. Minimal periventricular ischemic white matter demyelination. 2. Otherwise, unremarkable MRI examination of the brain. 3. Specifically, no acute infarction, mass or hemorrhage. Cervical Spine MRI 01/04/19 17:11 CONCLUSION: 1. No significant abnormal enhancement or evidence for mass as questioned. 2. Multilevel degenerative spondylosis of the cervical spine most notably at C5 -6 and C6-7 with resultant moderate to severe neural foraminal narrowing at both levels. 3. Please see above for detailed description of each level. Head MRI 01/05/19 00:00 CONCLUSION: 1. Unremarkable and stable MRI of the brain compared to the prior examination of 01/04/2019. Lumbar Spine MRI 01/05/19 00:00 CONCLUSION: 1. There is a combination of diffuse broad-based bulging and right paracentral disc protrusion/extrusion with some slight extension of disc material behind the body of L5 on the right. 2. There is broad-based bulging at multiple levels including T12-L1, L1-L2, L2- L3 and L3-L4. 3. There is bilateral facet arthritis at multiple levels. 4. No significant spinal canal stenosis. 5. Primary bony degenerative changes with disc degeneration and disc space narrowing at multiple levels. There is some mild chronic loss of height of L1 with no abnormal bone marrow edema. Thoracic Spine MRI 01/05/19 00:00 CONCLUSION: 1. Focal moderate spinal canal stenosis is noted at T10-T11. There is moderate broad-based bulging at this level with focal left paracentral disc protrusion. 2. Left paracentral disc protrusion at T9-T10 3. Focal mild right paracentral bulging T1-T2. 4. Mild right paracentral bulging and left paracentral bulging at T2-T3 5. Small left paracentral bulging T3-T4. 6. Focal mild left paracentral bulging T6-T7 and mild broad-based bulging T11- T12 Assessment and Plan Plan 68 yo male with multiple medical problems came for eval of left sided weakness for the past 3 days progressively getting worse. Patient complaints of 3-day of headache, left arm and leg weakness, generalized weakness and associated confusion. Left sided weakness x 3 days r/o CVA Dizziness Hearing loss left ear CT/CTA head neg CTA neck neg MRI head unremarkable trop <0.02 KALIN neg -Neurology following, appreciate assistance -trial of Meclizine. Check orthostatic BP measurements. Consider decreasing dose of Gabapentin. -PT/OT -ST recommending regular diet, thin liquids and MBS -continue to monitor on telemetry -Holter monitor DDD cervical, thoracic and lumbar spine Chronic pain MRI cervical spine shows multilevel degenerative changes worse at C5-6 and C6-7 with moderate to severe neuroforaminal narrowing MRI thoracic spine shows multilevel degenerative changes most notably at T10- T11 level with left paracentral disc protrusion and moderate spinal canal stenosis MRI lumbar spine shows multilevel degenerative changes most notably at L4-5 with disc herniation and facet arthropathy -DW Dr. Milligan and will request neurosurgery evaluation, appreciate assistance HTN, currently hypotensive -hold home medications Tenormin and Hytrin -continue to monitor BP and adjust treatment accordingly H/of Anxiety / depression BPH Colon cancer GERD (gastroesophageal reflux disease) Hep C -stable -continue on home medications DVT ppx scd/teds/ lovenox Code Status: FULL Discussed Condition With: patient, nursing staff, Dr. Menchaca Progress Note: Quality VTE Deep Vein Thrombosis/Pulmonary Embolism Present on Admission: No
--- NOTE | 2019-01-05 14:38 | ECG ---
Date Performed: 01/05/2019 Time Performed: 04:46:22 PTAGE: 68 years EKG: Sinus rhythm Left axis deviation rSr'(V1) - probable normal variant Borderline ECG Since the PREVIOUS TRACING , no significant change noted PREVIOUS TRACIN01/04/2019 10.32 DOCTOR: Claudia Wright Interpretating Date/Time 01/05/2019 14:32:47
--- NOTE | 2019-01-05 14:54 | ECG ---
Date Performed: 01/04/2019 Time Performed: 10:32:07 PTAGE: 68 years EKG: Sinus rhythm POSSIBLE RIGHT VENTRICULAR CONDUCTION DELAY LEFT ANTERIOR FASCICULAR BLOCK ABNORMAL ECG Since the pr evious tracing, no significant change noted NO PREVIOUS TRACING DOCTOR: Claudia Wright Interpretating Date/Time 01/05/2019 14:46:46
[2019-01-05] MEDS: Enoxaparin Inj 40 MG/0.4 ML Syringe SQ SCH (15:06)
--- NOTE | 2019-01-05 15:11 | FL ---
EXAM DATE: 01/05/2019 3:00 PM EST AGE/SEX: 68 years / Male INDICATIONS: Dysphagia. CLINICAL DATA: This is the patient's initial encounter. Patient reports that signs and symptoms have been present for 4 - 6 days and indicates a pain score of 0/10. MEDICAL/SURGICAL HISTORY: Carcinoma, colon. fell off ladder years ago, collapsed vertebrae, hyp erparathyroidism, carotid stenosis Cholecystectomy. COMPARISON: No prior exams available for comparison. FLUORO TIME: 2.0 IMAGE COUNT: 0 RADIATION DOSE: 43.43 DAP FINDINGS: A modified barium swallow was performed with speech pathology. Patient was given a variety of liquids to swallow. For a full detailed report, see report by the speech pathologist. CONCLUSION: Mild hypopharyngeal retention and some of the swallows. No evidence of laryngeal penetration or aspir ation. Electronically signed by: Ian Ramirez MD Board Certified Radiologist 01/05/2019 3:09 PM EST
--- NOTE | 2019-01-05 17:04 | ECHRPT ---
Indication: CVA/TIA CONCLUSIONS Normal left ventricular size. Wall thickness is normal. The left ventricular systolic function is normal with an estimated ejection fraction in the range of 55-60%. The estimated pulmonary arterial pressure is 31 mmHg. The inferior vena cava is dilated. BP: / HR: Rhythm: MEASUREMENTS (Male / Female) Normal Values Technical Quality: 2D ECHO LV Diastolic Diameter PLAX 4.4 cm 4.2 - 5.9 / 3.9 - 5.3 cm LV Systolic Diameter PLAX 3.2 cm IVS Diastolic Thickness 1.2 cm 0.6 - 1.0 / 0.6 - 0.9 cm LVPW Diastolic Thickness 1.0 cm 0.6 - 1.0 / 0.6 - 0.9 cm LV Relative Wall Thickness 0.5 RV Internal Dim ED PLAX 2.8 cm Aortic Root Diameter 2.9 cm LA Systolic Diameter LX 2.4 cm 3.0 - 4.0 / 2.7 - 3.8 cm DOPPLER AV Peak Velocity 128.0 cm/s AV Peak Gradient 6.6 mmHg LVOT Peak Velocity 97.2 cm/s LVOT Peak Gradient 3.8 mmHg Mitral E Point Velocity 79.0 cm/s Mitral A Point Velocity 80.0 cm/s Mitral E to A Ratio 1.0 LV E' Lateral Velocity 8.9 cm/s Mitral E to LV E' Lateral Ratio 8.9 LV E' Septal Velocity 9.0 cm/s Mitral E to LV E' Septal Ratio 8.8 TR Peak Velocity 227.0 cm/s TR Peak Gradient 20.6 mmHg Right Atrial Pressure 10.0 mmHg Pulmonary Artery Systolic Pressu 30.6 mmHg Right Ventricular Systolic Press 30.6 mmHg PV Peak Velocity 103.0 cm/s PV Peak Gradient 4.2 mmHg FINDINGS LEFT VENTRICLE Normal left ventricular size. Wall thickness is normal. The left ventricular systolic function is normal with an estimated ejection fraction in the range of 55-60%. RIGHT VENTRICLE Normal right ventricular size and systolic function. LEFT ATRIUM The left atrial size is normal. RIGHT ATRIUM The right atrial size is normal. ATRIAL SEPTUM Normal atrial septal thickness without atrial level shunting by limited color doppler interrogation. AORTA The aortic root and proximal ascending aorta are normal in size on limited imaging. MITRAL VALVE Structurally normal mitral valve. No mitral valve stenosis or regurgitation. AORTIC VALVE Trileaflet aortic valve. No aortic valve stenosis or regurgitation. TRICUSPID VALVE The estimated pulmonary arterial pressure is 31 mmHg. PULMONARY VALVE No pulmonary valve regurgitation or stenosis. VESSELS The inferior vena cava is dilated. PERICARDIUM No pericardial effusion. Sanjay Smallwood MD, FACC, [facility] [place] (Electronically Signed) Final Date:05 January 2019 17:03
--- NOTE | 2019-01-05 19:26 | P.PNNEU ---
Subjective Active Medications: Active Medications Acetaminophen (Tylenol) 650 mg PO Q4H PRN PRN Reason: Temp > 100.4 Al Hydroxide/Mg Hydroxide (Milk Of Magnesia Liq) 30 ml PO Q12H PRN PRN Reason: Mild Constipation Atenolol (Tenormin) 25 mg PO DAILY [facility] Last Admin: 01/05/19 08:40 Dose: 25 mg Bisacodyl (Dulcolax Supp) 10 mg RECTAL DAILY PRN PRN Reason: SEVERE CONSITIPATION Dexamethasone Sodium Phosphate (Decadron Inj) 10 mg IV.PUSH ONCE ONE Stop: 01/05/19 19:05 Dexamethasone Sodium Phosphate (Decadron Inj) 4 mg IV.PUSH Q6HR [facility] Enoxaparin Sodium (Lovenox Inj) 40 mg SQ Q24H [facility] Last Admin: 01/05/19 15:06 Dose: 40 mg Gabapentin (Neurontin) 600 mg PO TID [facility] Last Admin: 01/05/19 12:00 Dose: 600 mg Lactulose (Lactulose Liq) 30 ml PO DAILY PRN PRN Reason: SEVERE CONSITIPATION Meclizine HCl (Antivert) 25 mg PO Q8HR [facility] Last Admin: 01/05/19 18:04 Dose: 25 mg Ondansetron HCl (Zofran Inj) 4 mg IV.PUSH Q6H PRN PRN Reason: NAUSEA OR VOMITING Pantoprazole Sodium (Protonix) 20 mg PO DAILY [facility] Last Admin: 01/05/19 08:40 Dose: 20 mg Pravastatin Sodium (Pravachol) 40 mg PO QPM [facility] Last Admin: 01/05/19 18:04 Dose: 40 mg Senna/Docusate Sodium (Shantelle-Colace) 1 tab PO BID [facility] Last Admin: 01/05/19 08:40 Dose: 1 tab Sennosides (Senokot) 17.2 mg PO Q12H PRN PRN Reason: Moderate Constipation Sodium Chloride (Ns Flush) 2 ml IV.FLUSH BID [facility] Last Admin: 01/05/19 08:40 Dose: Not Given Sodium Chloride (Ns Flush) 2 ml IV.FLUSH PRN PRN PRN Reason: FLUSH AFTER USING IV ACCESS Terazosin HCl (Hytrin) 4 mg PO DAILY [facility] Last Admin: 01/05/19 08:40 Dose: 4 mg Tramadol HCl (Ultram) 50 mg PO Q6H PRN PRN Reason: PAIN SCALE 1 TO 10 Last Admin: 01/05/19 12:03 Dose: 50 mg Zolpidem Tartrate (Ambien) 10 mg PO [facility] Last Admin: 01/04/19 21:43 Dose: 10 mg Allergies/Adverse Reactions: Allergies Allergy/AdvReac Type Severity Reaction Status Date / Time No Known Allergies Allergy Verified 01/04/19 10:31 Physical Exam Vital signs: Vital Signs 01/04/19 20:00 01/05/19 00:00 01/05/19 02:40 Temperature 98 F 97.5 F L 97.8 F Pulse Rate 67 74 60 Respiratory Rate 16 20 20 Blood Pressure 118/67 100/53 L 120/63 Pulse Oximetry 95 96 97 01/05/19 04:00 01/05/19 08:00 01/05/19 08:10 Temperature 97.8 F 98.3 F Pulse Rate 65 67 63 Respiratory Rate 18 18 Blood Pressure 121/73 137/73 Pulse Oximetry 97 96 01/05/19 12:00 01/05/19 16:00 01/05/19 16:30 Temperature 97.4 F L 98.3 F Pulse Rate 74 66 Respiratory Rate 17 19 Blood Pressure 114/60 93/50 L Pulse Oximetry 95 96 96 Intake & Output 01/05/19 01/05/19 01/06/19 06:59 18:59 06:59 Intake Total 1960 / 1960 2350 / 2350 Output Total 120 / 120 Balance 1840 / 1840 2350 / 2350 Weight 88.8 kg Intake: IV 1000 / 1000 1150 / 1150 NS Inj 1,000 ML @ 100 mls/hr IV 1000 / 1000 1150 / 1150 .CONT .Q10H [facility] Rx#:[id number] Oral 960 / 960 1200 / 1200 Output: Urine 120 / 120 Other: # Voids 2 2 Objective Laboratory Results - last 24 hr 01/04/19 01/04/19 01/04/19 10:40 18:56 18:56 WBC RBC Hgb Hct MCV MCH MCHC RDW Plt Count MPV Neut % (Auto) Lymph % (Auto) Runnels % (Auto) Eos % (Auto) Baso % (Auto) Neut # (Auto) Lymph # (Auto) R[place]els # (Auto) Eos # (Auto) Baso # (Auto) WBC Differential Differential Comment ESR Sodium Potassium Chloride Carbon Dioxide Anion Gap BUN Creatinine Estimated GFR POC Glucose Random Glucose Hemoglobin A1c 5.8 Calcium Total Bilirubin Direct Bilirubin Indirect Bilirubin AST ALT Alkaline Phosphatase Ammonia 12 Total Creatine Kinase Troponin I C-Reactive Protein Cancelled Total Protein Albumin Triglycerides Cholesterol LDL Cholesterol, Calc HDL Cholesterol Cholesterol/HDL Ratio Vitamin B12 Cancelled KALIN Screen 01/04/19 01/04/19 01/04/19 18:56 18:56 18:56 WBC RBC Hgb Hct MCV MCH MCHC RDW Plt Count MPV Neut % (Auto) Lymph % (Auto) Runnels % (Auto) Eos % (Auto) Baso % (Auto) Neut # (Auto) Lymph # (Auto) R[place]els # (Auto) Eos # (Auto) Baso # (Auto) WBC Differential Differential Comment ESR 3 Sodium Potassium Chloride Carbon Dioxide Anion Gap BUN Creatinine Estimated GFR POC Glucose Random Glucose Hemoglobin A1c Calcium Total Bilirubin 0.6 Direct Bilirubin 0.2 Indirect Bilirubin 0.4 AST 27 ALT 33 Alkaline Phosphatase 58 Ammonia Total Creatine Kinase Troponin I C-Reactive Protein Less than 0.29 Total Protein 6.8 Albumin 3.6 Triglycerides Cholesterol LDL Cholesterol, Calc HDL Cholesterol Cholesterol/HDL Ratio Vitamin B12 853 KALIN Screen Neg 01/05/19 01/05/19 01/05/19 04:26 04:26 04:26 WBC 6.2 RBC 4.36 L Hgb 13.6 Hct 39.6 MCV 90.8 MCH 31.1 MCHC 34.3 RDW 14.1 Plt Count 201 MPV 7.3 Neut % (Auto) 46.8 Lymph % (Auto) 35.2 Runnels % (Auto) 10.0 H Eos % (Auto) 6.6 H Baso % (Auto) 1.4 Neut # (Auto) 2.9 Lymph # (Auto) 2.2 Runnels # (Auto) 0.6 Eos # (Auto) 0.4 Baso # (Auto) 0.1 WBC Differential . Differential Comment Auto diff final ESR Sodium 143 Potassium 4.1 Chloride 111 H Carbon Dioxide 26.3 Anion Gap 6 BUN 25 H Creatinine 0.70 Estimated GFR Greater than 89 POC Glucose Random Glucose 89 Hemoglobin A1c Calcium 8.0 L D Total Bilirubin Direct Bilirubin Indirect Bilirubin AST ALT Alkaline Phosphatase Ammonia Total Creatine Kinase 78 Troponin I Less than 0.02 L Cancelled C-Reactive Protein Total Protein Albumin Triglycerides 44 Cholesterol 125 LDL Cholesterol, Calc 74 HDL Cholesterol 42.0 Cholesterol/HDL Ratio 2.97 Vitamin B12 KALIN Screen 01/05/19 01/05/19 11:50 16:29 WBC RBC Hgb Hct MCV MCH MCHC RDW Plt Count MPV Neut % (Auto) Lymph % (Auto) Runnels % (Auto) Eos % (Auto) Baso % (Auto) Neut # (Auto) Lymph # (Auto) Runnels # (Auto) Eos # (Auto) Baso # (Auto) WBC Differential Differential Comment ESR Sodium Potassium Chloride Carbon Dioxide Anion Gap BUN Creatinine Estimated GFR POC Glucose 141 H 143 H Random Glucose Hemoglobin A1c Calcium Total Bilirubin Direct Bilirubin Indirect Bilirubin AST ALT Alkaline Phosphatase Ammonia Total Creatine Kinase Troponin I C-Reactive Protein Total Protein Albumin Triglycerides Cholesterol LDL Cholesterol, Calc HDL Cholesterol Cholesterol/HDL Ratio Vitamin B12 KALIN Screen Review/Management - Review/Management Plan: 01/05/19 720pm he has thoracic cord compression on mri i kang og and he will have look at him decadron started i kang charge nurse he has nl strength ble now
[2019-01-05] MEDS ORDERED: Dexamethasone Inj 20 MG/5 ML Vial IV.PUSH ONE (20:00)
--- NOTE | 2019-01-05 21:58 | P.CONNS ---
History of Present Illness Service: Neurosurgery Consult date: 01/05/19 Requesting Physician: Tia Persaud Reason for Consult: evaluate spinal stenosis Primary Care Provider: [facility] Chief Complaint: left sided weakness History of Present Illness: I was asked by Dr. Persaud to see and evaluate this 68 yo male who presented with an acute onset of left sided weakness while at [facility] in [place], for the past 3 days progressively getting worse. Weakness seems more in the left leg than the left arm. He also says his left leg feels numb and " buzzing ". Also complains of headache on the top of his head and around the right eye with no no change in vision.Then on Tuesday, he had a headache right frontal region, some dizziness, vertigo, and then noticed that his left leg felt numb and then he fell with the vertigo.He was admitted yesterday with what was thought to be left-sided weakness.He has had [id number] of dizziness for some time now. Patient also complaints of chronic low back as well as mid-back pain for the past 20 years. He just completed 14 weeks of PT at the [place] last month. Review of Systems All other systems reviewed negative except as stated in HPI PMFSH - History History Provided By: Patient, Family Member - Medical History Medical History: Medical History (Last Reviewed 01/05/19 @ 21:43 by Parth Gilmore MD) Anxiety BPH (benign prostatic hyperplasia) Colon cancer Depression Diverticulosis GERD (gastroesophageal reflux disease) HTN (hypertension) Osteoarthritis Arthralgia Carotid artery stenosis Hepatitis C Kidney stones Lipoma - Surgical History Surgical History: Surgical History (Last Reviewed 01/05/19 @ 21:43 by Parth Gilmore MD) History of cholecystectomy - Tobacco History Second Hand Smoke Exposure: No Tobacco Use In Past 30 Days: No Smoking Status: Former smoker Tobacco Type: Cigarettes - Alcohol History How Often Do You Have a Drink Containing Alcohol: Never - Substance Use History Substance History: No History of Abuse - Travel History Recent Travel in the [place] Within the Last 8 Weeks: No Recent Travel Out of the Country Within the Last 8 Weeks: No - Immunization History Tetanus Immunization: <5 Years Medications and Allergies Active Medications: Active Medications Acetaminophen (Tylenol) 650 mg PO Q4H PRN PRN Reason: Temp > 100.4 Al Hydroxide/Mg Hydroxide (Milk Of Magnesia Liq) 30 ml PO Q12H PRN PRN Reason: Mild Constipation Atenolol (Tenormin) 25 mg PO DAILY COUNTS INCLUDE 234 BEDS AT THE [facility] Last Admin: 01/05/19 08:40 Dose: 25 mg Bisacodyl (Dulcolax Supp) 10 mg RECTAL DAILY PRN PRN Reason: SEVERE CONSITIPATION Dexamethasone Sodium Phosphate (Decadron Inj) 4 mg IV.PUSH Q6HR COUNTS INCLUDE 234 BEDS AT THE [facility] Enoxaparin Sodium (Lovenox Inj) 40 mg SQ Q24H COUNTS INCLUDE 234 BEDS AT THE [facility] Last Admin: 01/05/19 15:06 Dose: 40 mg Gabapentin (Neurontin) 600 mg PO TID COUNTS INCLUDE 234 BEDS AT THE [facility] Last Admin: 01/05/19 12:00 Dose: 600 mg Lactulose (Lactulose Liq) 30 ml PO DAILY PRN PRN Reason: SEVERE CONSITIPATION Meclizine HCl (Antivert) 25 mg PO Q8HR COUNTS INCLUDE 234 BEDS AT THE [facility] Last Admin: 01/05/19 21:30 Dose: 25 mg Ondansetron HCl (Zofran Inj) 4 mg IV.PUSH Q6H PRN PRN Reason: NAUSEA OR VOMITING Pantoprazole Sodium (Protonix) 20 mg PO DAILY COUNTS INCLUDE 234 BEDS AT THE [facility] Last Admin: 01/05/19 08:40 Dose: 20 mg Pravastatin Sodium (Pravachol) 40 mg PO QPM COUNTS INCLUDE 234 BEDS AT THE [facility] Last Admin: 01/05/19 18:04 Dose: 40 mg Senna/Docusate Sodium (Shantelle-Colace) 1 tab PO BID COUNTS INCLUDE 234 BEDS AT THE [facility] Last Admin: 01/05/19 21:29 Dose: 1 tab Sennosides (Senokot) 17.2 mg PO Q12H PRN PRN Reason: Moderate Constipation Sodium Chloride (Ns Flush) 2 ml IV.FLUSH BID COUNTS INCLUDE 234 BEDS AT THE [facility] Last Admin: 01/05/19 21:30 Dose: 2 ml Sodium Chloride (Ns Flush) 2 ml IV.FLUSH PRN PRN PRN Reason: FLUSH AFTER USING IV ACCESS Terazosin HCl (Hytrin) 4 mg PO DAILY COUNTS INCLUDE 234 BEDS AT THE [facility] Last Admin: 01/05/19 08:40 Dose: 4 mg Tramadol HCl (Ultram) 50 mg PO Q6H PRN PRN Reason: PAIN SCALE 1 TO 10 Last Admin: 01/05/19 21:30 Dose: 50 mg Zolpidem Tartrate (Ambien) 10 mg PO HS COUNTS INCLUDE 234 BEDS AT THE [facility] Last Admin: 01/05/19 21:29 Dose: 10 mg Allergies Allergy/AdvReac Type Severity Reaction Status Date / Time No Known Allergies Allergy Verified 01/04/19 10:31 Home Medications Medication Instructions Recorded Confirmed Type atenolol 25 mg PO DAILY 01/04/19 01/04/19 History gabapentin 600 mg PO TID 01/04/19 01/04/19 History meloxicam 7.5 mg PO DAILY 01/04/19 01/04/19 History omeprazole 20 mg PO DAILY 01/04/19 01/04/19 History simvastatin 20 mg PO QPM 01/04/19 01/04/19 History terazosin 4 mg PO DAILY 01/04/19 01/04/19 History tramadol 50 mg PO Q6H PRN 01/04/19 01/04/19 History zolpidem 10 mg PO HS 01/04/19 01/04/19 History Exam Vital signs: Vital Signs 01/05/19 00:00 01/05/19 02:40 01/05/19 04:00 Temperature 97.5 F L 97.8 F 97.8 F Pulse Rate 74 60 65 Respiratory Rate 20 20 18 Blood Pressure 100/53 L 120/63 121/73 Pulse Oximetry 96 97 97 01/05/19 08:00 01/05/19 08:10 01/05/19 12:00 Temperature 98.3 F 97.4 F L Pulse Rate 67 63 74 Respiratory Rate 18 17 Blood Pressure 137/73 114/60 Pulse Oximetry 96 95 01/05/19 16:00 01/05/19 16:30 Temperature 98.3 F Pulse Rate 66 Respiratory Rate 19 Blood Pressure 93/50 L Pulse Oximetry 96 96 Intake & Output 01/05/19 01/05/19 01/06/19 06:59 18:59 06:59 Intake Total 1959 / 1959 2350 / 2350 Output Total 120 / 120 Balance 1840 / 1840 2350 / 2350 Weight 88.8 kg Intake: IV 1000 / 1000 1150 / 1150 NS Inj 1,000 ML @ 100 mls/hr IV 1000 / 1000 1150 / 1150 .CONT .Q10H [facility] Rx#:[id number] Oral 960 / 960 1200 / 1200 Output: Urine 120 / 120 Other: # Voids 2 2 - Constitutional no acute distress, average body habitus - Routine HEENT Exam Head: Present: normocephalic, atraumatic, scalp tenderness Eye: Present: EOMI, PERRL, normal accommodation ENT: Present: mucous membranes moist, oropharynx clear - Routine Neck Exam Present: supple, full ROM, trachea midline - Routine Respiratory Exam Present: CTA bilaterally - Routine Cardiovascular Exam Present: RRR - Routine Abdominal Exam Present: soft, normoactive bowel sounds - Routine Extremities Exam Present: full ROM, pulses intact, normal capillary refill - Routine Skin Exam Present: intact, warm, normal turgor - Routine Neurological Exam MS: AAO x 3 Speech: fluent CNII-XII: intact Motor: Mild Left hemiparesis 5-/5 Sensory: decreased LT, and PP in legft hemibody distribution. Results - Laboratory Findings CBC and BMP: 01/05/19 04:26 01/05/19 04:26 Abnormal lab findings: Abnormal Labs 01/04/19 01/04/19 01/04/19 10:40 10:40 10:45 RBC Neut % (Auto) 76.5 H Cochran % (Auto) Eos % (Auto) Chloride 109 H BUN 24 H POC Glucose 141 H Random Glucose 135 H Calcium Troponin I Less than 0.02 L Urine Clarity Amorphous Sediment Urine Mucus 01/04/19 01/05/19 01/05/19 10:49 04:26 04:26 RBC 4.36 L Neut % (Auto) Cochran % (Auto) 10.0 H Eos % (Auto) 6.6 H Chloride 111 H BUN 25 H POC Glucose Random Glucose Calcium 8.0 L D Troponin I Less than 0.02 L Urine Clarity Hazy H Amorphous Sediment Few H Urine Mucus Few H 01/05/19 01/05/19 11:50 16:29 RBC Neut % (Auto) Cochran % (Auto) Eos % (Auto) Chloride BUN POC Glucose 141 H 143 H Random Glucose Calcium Troponin I Urine Clarity Amorphous Sediment Urine Mucus - Diagnostic Findings EKG: report reviewed, image reviewed Additional findings: Head CT CTA, Brain MRI All reviewed T and L-Spine MRI's all reviewed. Assessment and Plan - Plan 68 yo male s/p mild stroke 3 days ago now resolving. No significant restriction of diffusion albeit small stroke. c/o low back and mid back pain. Has a right sided L4/5 disc herniation and just completed 14 weeks of PT at [place] with no significant improvement. T- spine MRI shows moderate disc herniation and stenosis with Some Thoracic myelopathy. Await pending studies. Will need Lumbar flex/ext views. Will follow
--- NOTE | 2019-01-05 22:42 | MG ---
cc: Andres Clinton MD EEG RECORD NUMBER: [id number] MRI brain negative. His EEG, stage II sleep, appearance of K complexes spindles, low amplitude delta and theta frequencies, 10-20 microvolts. Reduced driving with photic stimulation. Single lead EKG showing sinus rhythm. INTERPRETATION: Mainly stage II sleep throughout the recording. Clinical correlation. MD RONNIE Norman/floyd , 10:17 PM , 10:24 PM
[2019-01-06] MEDS: Pantoprazole Sodium 20 MG DR Tablet PO SCH (09:51)
[2019-01-06] MEDS: Senna/Docusate Sodium 8.6/50 MG Tablet PO SCH ×2 (09:52→20:34)
--- NOTE | 2019-01-06 10:36 | P.PNNEU ---
Subjective Subjective Comments: No cp, no dyspnea, no cameron, , no vision loss. Cross cover. Chronic spinal pain mild numbness left lower extremity came in for further evaluation is he states he just got worse. No overnight changes Active Medications: Active Medications Acetaminophen (Tylenol) 650 mg PO Q4H PRN PRN Reason: Temp > 100.4 Al Hydroxide/Mg Hydroxide (Milk Of Magnesia Liq) 30 ml PO Q12H PRN PRN Reason: Mild Constipation Atenolol (Tenormin) 25 mg PO DAILY [facility] Last Admin: 01/05/19 08:40 Dose: 25 mg Bisacodyl (Dulcolax Supp) 10 mg RECTAL DAILY PRN PRN Reason: SEVERE CONSITIPATION Dexamethasone Sodium Phosphate (Decadron Inj) 4 mg IV.PUSH Q6HR [facility] Last Admin: 01/06/19 06:28 Dose: 4 mg Enoxaparin Sodium (Lovenox Inj) 40 mg SQ Q24H [facility] Last Admin: 01/05/19 15:06 Dose: 40 mg Gabapentin (Neurontin) 600 mg PO TID [facility] Last Admin: 01/05/19 12:00 Dose: 600 mg Lactulose (Lactulose Liq) 30 ml PO DAILY PRN PRN Reason: SEVERE CONSITIPATION Meclizine HCl (Antivert) 25 mg PO Q8HR [facility] Last Admin: 01/06/19 06:27 Dose: 25 mg Ondansetron HCl (Zofran Inj) 4 mg IV.PUSH Q6H PRN PRN Reason: NAUSEA OR VOMITING Pantoprazole Sodium (Protonix) 20 mg PO DAILY [facility] Last Admin: 01/06/19 09:51 Dose: 20 mg Pravastatin Sodium (Pravachol) 40 mg PO QPM [facility] Last Admin: 01/05/19 18:04 Dose: 40 mg Senna/Docusate Sodium (Shantelle-Colace) 1 tab PO BID [facility] Last Admin: 01/06/19 09:52 Dose: 1 tab Sennosides (Senokot) 17.2 mg PO Q12H PRN PRN Reason: Moderate Constipation Sodium Chloride (Ns Flush) 2 ml IV.FLUSH BID [facility] Last Admin: 01/06/19 09:51 Dose: 2 ml Sodium Chloride (Ns Flush) 2 ml IV.FLUSH PRN PRN PRN Reason: FLUSH AFTER USING IV ACCESS Terazosin HCl (Hytrin) 4 mg PO DAILY [facility] Last Admin: 01/05/19 08:40 Dose: 4 mg Tramadol HCl (Ultram) 50 mg PO Q6H PRN PRN Reason: PAIN SCALE 1 TO 10 Last Admin: 01/06/19 06:27 Dose: 50 mg Zolpidem Tartrate (Ambien) 10 mg PO [facility] Last Admin: 01/05/19 21:29 Dose: 10 mg Allergies/Adverse Reactions: Allergies Allergy/AdvReac Type Severity Reaction Status Date / Time No Known Allergies Allergy Verified 01/04/19 10:31 Review of Systems All other systems reviewed negative except as stated in HPI Physical Exam Vital signs: Vital Signs 01/05/19 12:00 01/05/19 16:00 01/05/19 16:30 Temperature 97.4 F L 98.3 F Pulse Rate 74 66 Respiratory Rate 17 19 Blood Pressure 114/60 93/50 L Pulse Oximetry 95 96 96 01/05/19 20:00 01/05/19 20:08 01/06/19 00:00 Temperature 97.9 F 98 F Pulse Rate 68 71 71 Respiratory Rate 18 18 Blood Pressure 101/56 L 110/61 Pulse Oximetry 94 L 96 01/06/19 00:01 01/06/19 03:32 01/06/19 03:56 Temperature 98.1 F Pulse Rate 63 62 70 Respiratory Rate 18 Blood Pressure 108/58 L Pulse Oximetry 96 01/06/19 08:00 Temperature 97.9 F Pulse Rate 90 Respiratory Rate 18 Blood Pressure 130/69 Pulse Oximetry 95 Intake & Output 01/05/19 01/06/19 01/06/19 18:59 06:59 18:59 Intake Total 2350 / 2350 Balance 2350 / 2350 Weight 88.2 kg Intake: IV 1150 / 1150 NS Inj 1,000 ML @ 100 mls/hr IV 1150 / 1150 .CONT .Q10H [facility] Rx#:[id number] Oral 1200 / 1200 Other: # Voids 2 3 Date of Last Bowel Movement 01/03/19 Narrative: GENERAL: No acute distress sitting up in a chair SKIN: Warm and dry. HEAD: Atraumatic. Normocephalic. EYES: Pupils equal and round. No scleral icterus. ENT: No nasal bleeding or discharge. NECK: Trachea midline. CARDIOVASCULAR: Regular rate and rhythm. RESPIRATORY: No accessory muscle use. Clear to auscultation. GASTROINTESTINAL: Abdomen soft, non-tender, nondistended. MUSCULOSKELETAL: Extremities without clubbing, cyanosis, or edema. NEUROLOGICAL: Awake and alert. Oriented x3, no aphasia, motor grossly within normal limits.) Left lower extremity, asymmetric hyperreflexia left greater than right leg. Left ankle clonus 3-4 beats gait not assessed secondary fall risk PSYCHIATRIC: Appropriate mood and affect; insight and judgment normal. - Constitutional no acute distress - Routine HEENT Exam Head: Present: normocephalic Eye: Present: EOMI Objective Laboratory Results - last 24 hr 01/04/19 01/05/19 01/05/19 18:56 11:50 16:29 POC Glucose 141 H 143 H KALIN Screen Neg 01/06/19 06:22 POC Glucose 133 H KALIN Screen Review/Management - Diagnosis (1) Thoracic stenosis Code(s): M48.04 - Spinal stenosis, thoracic region Status: Acute Current Visit: Yes - Review/Management Plan: Asymmetric left lower extremity hyperreflexia with sensory impairment appears to be secondary to focal severe stenosis lower thoracic level causing cord compression Moving both lower extremities Recommendation Neurosurgical follow-up for consideration of decompression Follow exam
--- NOTE | 2019-01-06 12:46 | P.PNNS ---
Subjective Interval history: 68 yo male who presented with an acute onset of left sided weakness while at [facility] in [place], for the past 3 days progressively getting worse. Weakness seems more in the left leg than the left arm. He also says his left leg feels numb and " buzzing". Also complains of headache on the top of his head and around the right eye with no no change in vision.Then on Tuesday, he had a headache right frontal region, some dizziness, vertigo, and then noticed that his left leg felt numb and then he fell with the vertigo.He was admitted yesterday with what was thought to be left-sided weakness.He has had episodes of dizziness for some time now. Patient also complaints of chronic low back as well as mid-back pain for the past 20 years. He just completed 14 weeks of PT at the [place] last month. No overnight events. Physical Exam Vital signs: Vital Signs 01/05/19 16:00 01/05/19 16:30 01/05/19 20:00 Temperature 98.3 F 97.9 F Pulse Rate 66 68 Respiratory Rate 19 18 Blood Pressure 93/50 L 101/56 L Pulse Oximetry 96 96 94 L 01/05/19 20:08 01/06/19 00:00 01/06/19 00:01 Temperature 98 F Pulse Rate 71 71 63 Respiratory Rate 18 Blood Pressure 110/61 Pulse Oximetry 96 01/06/19 03:32 01/06/19 03:56 01/06/19 08:00 Temperature 98.1 F 97.9 F Pulse Rate 62 70 90 Respiratory Rate 18 18 Blood Pressure 108/58 L 130/69 Pulse Oximetry 96 95 Intake & Output 01/05/19 01/06/19 01/06/19 18:59 06:59 18:59 Intake Total 2350 / 2350 Balance 2350 / 2350 Weight 88.2 kg Intake: IV 1150 / 1150 NS Inj 1,000 ML @ 100 mls/hr IV 1150 / 1150 .CONT .Q10H [facility] Rx#:[id number] Oral 1200 / 1200 Other: # Voids 2 3 Date of Last Bowel Movement 01/03/19 - Constitutional no acute distress - Routine HEENT Exam Head: Present: normocephalic, atraumatic Eye: Present: EOMI, PERRL, normal accommodation ENT: Present: mucous membranes moist, oropharynx clear - Routine Neck Exam Present: supple, full ROM, trachea midline - Routine Respiratory Exam Present: CTA bilaterally - Routine Cardiovascular Exam Present: RRR - Routine Abdominal Exam Present: soft, normoactive bowel sounds - Routine Extremities Exam Present: full ROM, pulses intact, normal capillary refill - Routine Skin Exam Present: intact, warm, normal turgor - Routine Neurological Exam MS: AAO x 3 Speech: fluent CNII-XII: intact Motor: Mild Left hemiparesis 5-/5 Sensory: decreased LT, and PP in left hemibody distribution. Left Achilles hyper-reflexia c/w Thoracic stenosis - Detailed Neurological Exam: Coma Scale Eye Opening: Spontaneous Verbal Response: Oriented Motor Response: Obey commands [place] Coma Scale Total: 15 - Routine Psychiatric Exam Present: normal affect, normal thought process, cooperative Assessment and Plan - Plan 68 yo male s/p mild stroke 3 days ago now resolving. No significant restriction of diffusion albeit small stroke. c/o low back and mid back pain. Has a right sided L4/5 disc herniation and just completed 14 weeks of PT at [place] with no significant improvement. T- spine MRI shows moderate disc herniation and stenosis with Some Thoracic myelopathy. Will need Lumbar flex/ext views. May f/u with /[facility] in 6 weeks for discussions regarding Thoracic decompression and lumbar microdiscectomy. Will need to wait 6 weeks due to recent mild stroke D/W patient and . They indicate that they understand and agree with the plan of care. All questions were answered today.
--- NOTE | 2019-01-06 13:01 | HM ---
Date Performed: 01/04/2019 Time Performed: 20:46:00 HOOKUP DATE: 01/04/19 08:46:00 PM [facility] ANALYSIS START TIME: 01/04/2019 8:51:00 PM ANALYSIS END TIME: 01/05/2019 9:19:02 AM PATIENT AGE: 68 PATIENT HEIGHT PATIENT WEIGHT DRUG LIST PATIENT DIAGNOSIS TEST NARRATIVE: The patient's average heart rate was 69 BPM. Heart rates greater than 120 B PM were noted < 1% of the time. No episodes of bradycardia were noted. No pauses exceeding 2.0 s econds were noted. 1 ventricular ectopics, which represented < 1% of the total beat count, were n oted. The highest ventricular ectopic frequency occurred from 02:00 AM to 03:00 AM Fri. During this time 1 VE(s) occurred. Ventricular ectopics were observed as 1 isolated beat(s) only. No couplets or runs were noted. 42 supraventricular ectopics, which represented < 1% of the total beat count, were noted. The highest supraventricular ectopic frequency occurred from 02:00 AM to 03:00 AM Fri. During this time 18 SVE(s) occurred. No episodes of ST depression (defined as -1.0 mm or more) w ere noted in channel 1. No episodes of ST depression (defined as -1.0 mm or more) were noted in [place] 2. No episodes of ST depression (defined as -1.0 mm or more) were noted in channel 3. PATIENT ZECHARIAH MARCANO WAS NOT RETURNED WITH HOLTER. TEST INTERPRETATION: No diary was returned. No significant pauses are present. The underlying rh hm is Sinus rhythm with average rate 69 bpm and range of 54 to 156 bpm. Extremely rare PVCs are seen. Occasional PACs a re seen with occasional nonsustained atrial runs of up to 16 beats. Signed by : Rick Cody
--- NOTE | 2019-01-06 13:38 | P.PNIM ---
Subjective Interval history: Follow up on patient with left sided weakness. Patient seen and examined. Patient reports mild right-sided headache today. Denies any vision changes. He continues to have dizziness irrespective of positional changes. He complains of associated nausea. He says the numbness in the left side of his face has resolved. He also says his strength has returned to baseline. He continues to have pain in his mid and lower spine. He reports decreased sensation in the left leg. Physical Exam Vital signs: Vital Signs 01/05/19 16:00 01/05/19 16:30 01/05/19 20:00 Temperature 98.3 F 97.9 F Pulse Rate 66 68 Respiratory Rate 19 18 Blood Pressure 93/50 L 101/56 L Pulse Oximetry 96 96 94 L 01/05/19 20:08 01/06/19 00:00 01/06/19 00:01 Temperature 98 F Pulse Rate 71 71 63 Respiratory Rate 18 Blood Pressure 110/61 Pulse Oximetry 96 01/06/19 03:32 01/06/19 03:56 01/06/19 08:00 Temperature 98.1 F 97.9 F Pulse Rate 62 70 90 Respiratory Rate 18 18 Blood Pressure 108/58 L 130/69 Pulse Oximetry 96 95 Intake & Output 01/05/19 01/06/19 01/06/19 18:59 06:59 18:59 Intake Total 2350 / 2350 Balance 2350 / 2350 Weight 88.2 kg Intake: IV 1150 / 1150 NS Inj 1,000 ML @ 100 mls/hr IV 1150 / 1150 .CONT .Q10H [facility] Rx#:[id number] Oral 1200 / 1200 Other: # Voids 2 3 Date of Last Bowel Movement 01/03/19 Narrative: GENERAL: WDWN male patient, INAD. Awake and alert. Appears comfortable lying in bed. SKIN: Warm and dry. No generalized rash. HEENT: Atraumatic. Normocephalic. No facial asymmetry noted. Pupils equal and round. No scleral icterus. No nasal discharge. Mucous membranes pink and moist. NECK: Trachea midline. CARDIOVASCULAR: Regular rate and rhythm. RESPIRATORY: No accessory muscle use. Clear to auscultation. Breath sounds equal bilaterally. GASTROINTESTINAL: Abdomen soft, non-tender, nondistended. MUSCULOSKELETAL: Extremities without clubbing, cyanosis, or edema. +tenderness to palpation left mid thoracic paraspinal muscles. NEUROLOGICAL: Awake and alert. No obvious cranial nerve deficits. Motor grossly within normal limits. +Subjective decreased sensation in left leg. Normal speech. PSYCHIATRIC: Appropriate mood and affect; insight and judgment normal. Results Labs CBC & Chem 7: 01/05/19 04:26 01/05/19 04:26 Imaging Imaging: Impressions Videofluoroscopic Swallow 01/05/19 00:00 CONCLUSION: Mild hypopharyngeal retention and some of the swallows. No evidence of laryngeal penetration or aspiration. Assessment and Plan (1) Thoracic stenosis: Code(s): M48.04 - Spinal stenosis, thoracic region Status: Acute Plan 68 yo male with multiple medical problems came for eval of left sided weakness for the past 3 days progressively getting worse. Patient complaints of 3-day of headache, left arm and leg weakness, generalized weakness and associated confusion. Left sided weakness x 3 days r/o CVA Dizziness Hearing loss left ear CT/CTA head neg CTA neck neg MRI head unremarkable trop <0.02 KALIN neg -Neurology following, appreciate assistance -trial of Meclizine. Orthostatic BP measurements negative. Hold home dose of Gabapentin. ?BPPV. PT eval for Parth Hallpike/Raphael maneuver. -PT/OT -ST recommending regular diet, thin liquids and MBS -continue to monitor on telemetry -Holter monitor DDD cervical, thoracic and lumbar spine Thoracic cord compression Chronic low back pain MRI cervical spine shows multilevel degenerative changes worse at C5-6 and C6-7 with moderate to severe neuroforaminal narrowing MRI thoracic spine shows multilevel degenerative changes most notably at T10- T11 level with left paracentral disc protrusion and moderate spinal canal stenosis MRI lumbar spine shows multilevel degenerative changes most notably at L4-5 with disc herniation and facet arthropathy -started on Decadron -evaluated by Dr. Mando MANRIQUE who recommends f/u in 6weeks to discuss thoracic decompression and lumbar microdiscectomy -DW Dr. Clinton who has requested a second opinion with Dr. Saha, consult for Dr. Saha placed in EMR Hyperglycemia while on Decadron -accuchek and ISS HTN, currently hypotensive BP improved with holding home antihypertensives -continue to hold home medications Tenormin and Hytrin for now -continue to monitor BP and adjust treatment accordingly H/of Anxiety / depression BPH Colon cancer GERD (gastroesophageal reflux disease) Hep C -stable -continue on home medications DVT ppx scd/teds/ lovenox Code Status: FULL Discussed Condition With: patient, nursing staff, Dr. Menchaca, Dr. Clinton Discharge Planning: Not ready for discharge Progress Note: Quality VTE Deep Vein Thrombosis/Pulmonary Embolism Present on Admission: No
[2019-01-06] MEDS ORDERED: Polyethylene Glycol 3350 255 GM Bottle PO ONE (14:10)
[2019-01-06] MEDS ORDERED: Dextrose 50% in Water 50 ML Vial IV.PUSH PRN (14:11)
--- NOTE | 2019-01-06 14:40 | P.CONNS ---
History of Present Illness Service: Neuroaurgery Consult date: 01/06/19 Requesting Physician: Andres Clinton Reason for Consult: Thoracic myelopathy Primary Care Provider: [facility] Chief Complaint: left sided weakness History of Present Illness: This consultation has been requested in writing by the requesting physician to evaluate the patient for possible neurosurgical treatment. A copy of this consultation will be forwarded to the requesting physician to aid in the medical decision process. Treatment recommendations will be provided as well. This is a 68 year old male with multiple medical problems, brought to [facility] for evaluation of left sided weakness for the past 3 days. His symptoms have been getting progressively getting worse. He reports of 3-day left arm and leg weakness, generalized weakness and headache associated since morning. his weakness seems more severe in the left leg. he reports that his left leg feels numb and " buzzing". In addition, he reports headache is on the top of his head and around the right eye , no change in vision. He denies changes in vision. He reports vertigo. In addition, he reports chronic low back as well as mid-back pain for the past 20 years. He just completed 14 weeks of PT at the [place] last month without improvement. Dr Gilmore saw the patient, however, physicians were not comfortable with his consultation. A second opinion neurosurgical consultation was requested. [facility] - History History Provided By: Patient, Family Member - Medical History Medical History: Medical History (Last Reviewed 01/06/19 @ 09:11 by Zahra Oconnell Graduate Civil Engineer, [employer]) Anxiety BPH (benign prostatic hyperplasia) Colon cancer Depression Diverticulosis GERD (gastroesophageal reflux disease) HTN (hypertension) Osteoarthritis Arthralgia Carotid artery stenosis Hepatitis C Kidney stones Lipoma - Surgical History Surgical History: Surgical History (Last Reviewed 01/05/19 @ 21:43 by Parth Gilmore MD) History of cholecystectomy - Tobacco History Second Hand Smoke Exposure: No Tobacco Use In Past 30 Days: No Smoking Status: Former smoker Tobacco Type: Cigarettes - Alcohol History How Often Do You Have a Drink Containing Alcohol: Never - Substance Use History Substance History: No History of Abuse - Travel History Recent Travel in the [place] Within the Last 8 Weeks: No Recent Travel Out of the Country Within the Last 8 Weeks: No - Immunization History Tetanus Immunization: <5 Years Medications and Allergies Active Medications: Active Medications Acetaminophen (Tylenol) 650 mg PO Q4H PRN PRN Reason: Temp > 100.4 Al Hydroxide/Mg Hydroxide (Milk Of Magnesia Liq) 30 ml PO Q12H PRN PRN Reason: Mild Constipation Atenolol (Tenormin) 25 mg PO DAILY [facility] Last Admin: 01/05/19 08:40 Dose: 25 mg Bisacodyl (Dulcolax Supp) 10 mg RECTAL DAILY PRN PRN Reason: SEVERE CONSITIPATION Dexamethasone Sodium Phosphate (Decadron Inj) 4 mg IV.PUSH Q6HR [facility] Last Admin: 01/06/19 12:45 Dose: 4 mg Dextrose (D50w Vial) 50 ml IV.PUSH UNSCH PRN PRN Reason: PER HYPOGLYCEMIA PROTOCOL Enoxaparin Sodium (Lovenox Inj) 40 mg SQ Q24H [facility] Last Admin: 01/05/19 15:06 Dose: 40 mg Gabapentin (Neurontin) 600 mg PO TID [facility] Last Admin: 01/05/19 12:00 Dose: 600 mg Glucagon (Glucagon Inj) 1 mg OTHER PRN PRN PRN Reason: for Hypoglycemia Protocol Insulin Aspart (Novolog Insulin Correctional Sugar Inj) 0 unit SQ [facility]; Protocol Lactulose (Lactulose Liq) 30 ml PO DAILY PRN PRN Reason: SEVERE CONSITIPATION Meclizine HCl (Antivert) 25 mg PO Q8HR [facility] Last Admin: 01/06/19 06:27 Dose: 25 mg Ondansetron HCl (Zofran Inj) 4 mg IV.PUSH Q6H PRN PRN Reason: NAUSEA OR VOMITING Pantoprazole Sodium (Protonix) 20 mg PO DAILY [facility] Last Admin: 01/06/19 09:51 Dose: 20 mg Pravastatin Sodium (Pravachol) 40 mg PO QPM [facility] Last Admin: 01/05/19 18:04 Dose: 40 mg Senna/Docusate Sodium (Shantelle-Colace) 1 tab PO BID [facility] Last Admin: 01/06/19 09:52 Dose: 1 tab Sennosides (Senokot) 17.2 mg PO Q12H PRN PRN Reason: Moderate Constipation Last Admin: 01/06/19 12:44 Dose: 17.2 mg Sodium Chloride (Ns Flush) 2 ml IV.FLUSH BID [facility] Last Admin: 01/06/19 09:51 Dose: 2 ml Sodium Chloride (Ns Flush) 2 ml IV.FLUSH PRN PRN PRN Reason: FLUSH AFTER USING IV ACCESS Terazosin HCl (Hytrin) 4 mg PO DAILY [facility] Last Admin: 01/05/19 08:40 Dose: 4 mg Tramadol HCl (Ultram) 50 mg PO Q6H PRN PRN Reason: PAIN SCALE 1 TO 10 Last Admin: 01/06/19 12:44 Dose: 50 mg Zolpidem Tartrate (Ambien) 10 mg PO HS [facility] Last Admin: 01/05/19 21:29 Dose: 10 mg Allergies Allergy/AdvReac Type Severity Reaction Status Date / Time No Known Allergies Allergy Verified 01/04/19 10:31 Home Medications Medication Instructions Recorded Confirmed Type atenolol 25 mg PO DAILY 01/04/19 01/04/19 History gabapentin 600 mg PO TID 01/04/19 01/04/19 History meloxicam 7.5 mg PO DAILY 01/04/19 01/04/19 History omeprazole 20 mg PO DAILY 01/04/19 01/04/19 History simvastatin 20 mg PO QPM 01/04/19 01/04/19 History terazosin 4 mg PO DAILY 01/04/19 01/04/19 History tramadol 50 mg PO Q6H PRN 01/04/19 01/04/19 History zolpidem 10 mg PO HS 01/04/19 01/04/19 History Exam Vital signs: Vital Signs 01/05/19 16:00 01/05/19 16:30 01/05/19 20:00 Temperature 98.3 F 97.9 F Pulse Rate 66 68 Respiratory Rate 19 18 Blood Pressure 93/50 L 101/56 L Pulse Oximetry 96 96 94 L 01/05/19 20:08 01/06/19 00:00 01/06/19 00:01 Temperature 98 F Pulse Rate 71 71 63 Respiratory Rate 18 Blood Pressure 110/61 Pulse Oximetry 96 01/06/19 03:32 01/06/19 03:56 01/06/19 08:00 Temperature 98.1 F 97.9 F Pulse Rate 62 70 90 Respiratory Rate 18 18 Blood Pressure 108/58 L 130/69 Pulse Oximetry 96 95 Intake & Output 01/05/19 01/06/19 01/06/19 18:59 06:59 18:59 Intake Total 2350 / 2350 Balance 2350 / 2350 Weight 88.2 kg Intake: IV 1150 / 1150 NS Inj 1,000 ML @ 100 mls/hr IV 1150 / 1150 .CONT .Q10H JOSE Rx#:[id number] Oral 1200 / 1200 Other: # Voids 2 3 Date of Last Bowel Movement 01/03/19 Narrative: GENERAL: alert, awake, comfortable SKIN: Warm and dry. HEAD: Atraumatic. Normocephalic. EYES: Pupils equal and round. No scleral icterus. ENT: No nasal bleeding or discharge. NECK: Trachea midline. CARDIOVASCULAR: Regular rate and rhythm. RESPIRATORY: No accessory muscle use. Clear to auscultation. GASTROINTESTINAL: Abdomen soft, non-tender, nondistended. MUSCULOSKELETAL: Extremities without clubbing, cyanosis, or edema. NEUROLOGICAL: Awake and alert. Oriented x3, speech fluent, 5/5 all groups right upper and lower extremities, 5-/5 on the left DTR's Left lower extremity, asymmetric hyperreflexia left greater than right leg. Left ankle clonus 3-4 beats PSYCHIATRIC: Appropriate mood and affect; insight and judgment normal. Results - Laboratory Findings CBC and BMP: 01/05/19 04:26 01/05/19 04:26 Abnormal lab findings: Abnormal Labs 01/04/19 01/04/19 01/04/19 10:40 10:40 10:45 RBC Neut % (Auto) 76.5 H Benzie % (Auto) Eos % (Auto) Chloride 109 H BUN 24 H POC Glucose 141 H Random Glucose 135 H Calcium Troponin I Less than 0.02 L Urine Clarity Amorphous Sediment Urine Mucus 01/04/19 01/05/19 01/05/19 10:49 04:26 04:26 RBC 4.36 L Neut % (Auto) Benzie % (Auto) 10.0 H Eos % (Auto) 6.6 H Chloride 111 H BUN 25 H POC Glucose Random Glucose Calcium 8.0 L D Troponin I Less than 0.02 L Urine Clarity Hazy H Amorphous Sediment Few H Urine Mucus Few H 01/05/19 01/05/19 01/06/19 11:50 16:29 06:22 RBC Neut % (Auto) Benzie % (Auto) Eos % (Auto) Chloride BUN POC Glucose 141 H 143 H 133 H Random Glucose Calcium Troponin I Urine Clarity Amorphous Sediment Urine Mucus 01/06/19 11:57 RBC Neut % (Auto) Benzie % (Auto) Eos % (Auto) Chloride BUN POC Glucose 216 H Random Glucose Calcium Troponin I Urine Clarity Amorphous Sediment Urine Mucus Assessment and Plan - Plan 68 yo male with a possible mild ischemic cerevrobascular accident 3 days ago, now resolving. Thoracic myelopathy Lumbar disk herniation I have reviewed his clinical findings and multiple radiological studies and radiological findings Head CT 01/04/19 10:29 CONCLUSION: 1. Negative noncontrast CT brain. Head CTA 01/04/19 10:29 CONCLUSION: 1. Negative CTA Head. Neck CTA 01/04/19 10:29 CONCLUSION: 1. Negative CTA Carotid. Cervical Spine MRI 01/04/19 17:11 CONCLUSION: 1. No significant abnormal enhancement or evidence for mass as questioned. 2. Multilevel degenerative spondylosis of the cervical spine most notably at C5 -6 and C6-7 with resultant moderate to severe neural foraminal narrowing at both levels. 3. Please see above for detailed description of each level. Head MRI 01/05/19 00:00 CONCLUSION: 1. Unremarkable and stable MRI of the brain compared to the prior examination of 01/04/2019. Lumbar Spine MRI 01/05/19 00:00 CONCLUSION: 1. There is a combination of diffuse broad-based bulging and right paracentral disc protrusion/extrusion with some slight extension of disc material behind the body of L5 on the right. 2. There is broad-based bulging at multiple levels including T12-L1, L1-L2, L2- L3 and L3-L4. 3. There is bilateral facet arthritis at multiple levels. 4. No significant spinal canal stenosis. 5. Primary bony degenerative changes with disc degeneration and disc space narrowing at multiple levels. There is some mild chronic loss of height of L1 with no abnormal bone marrow edema. Thoracic Spine MRI 01/05/19 00:00 CONCLUSION: 1. Focal moderate spinal canal stenosis is noted at T10-T11. There is moderate broad-based bulging at this level with focal left paracentral disc protrusion. 2. Left paracentral disc protrusion at T9-T10 3. Focal mild right paracentral bulging T1-T2. 4. Mild right paracentral bulging and left paracentral bulging at T2-T3 5. Small left paracentral bulging T3-T4. 6. Focal mild left paracentral bulging T6-T7 and mild broad-based bulging T11- T12 Videofluoroscopic Swallow 01/05/19 00:00 CONCLUSION: Mild hypopharyngeal retention and some of the swallows. No evidence of laryngeal penetration or aspiration. Assessment and Plan Plan 68 yo male with multiple medical problems came for eval of left sided weakness for the past 3 days progressively getting worse. Patient complaints of 3-day of headache, left arm and leg weakness, generalized weakness and associated confusion. . Neuro: neuro checks in a serial fashion. I suspect that he may have fuffered a mild ischemic cerebrovascular accident, however, his symptoms are improving. He has hyperreflexia and clonus, likely related to the thoracic pathology and compression of the cord with abnormal signal intensity at T10-T11. He could benefit by a surgical decompression, but given his recent symptoms which suggest a TIA or s small infarction. I recommend to wait a few weeks. In regards to his lumbar disk protusion, i recommend to continue nonoperative treatment for now Pulmonary: aggressive pulmonary toilette, nasotracheal suction, and breathing treatments with nebulizers. Daily PT and OT HTN (hypertension). Strict BP control with antihypertensives H/of Anxiety / depression. Continue home meds BPH. Colon cancer No evidence of brain or spinal mets GERD (gastroesophageal reflux disease) Protonix for stress ulcer prophylaxis DVT ppx scd/teds/ lovenox Renal: Continue to monitor closely urine output, BUN and creatinine Endocrine: Check A1c and lipid profile. Monitor serial Acu checks and SSI as needed in detail ID monitor for signs of infection Roger hos and SCD's for DVT prophylaxis Further recommendations will be provided depending on the patient's clinical evaluation and follow up studies. Caprini VTE Risk Assessment Caprini VTE Risk Assessment: Moderate/High Risk (score >= 2) Caprini Risk Assessment Model: Point Value = 1 Point Value = 2 Point Value = 3 Point Value = 5 Age 41-60 Minor surgery BMI > 25 kg/m2 Swollen legs Varicose veins or History of unexplained or recurrent spontaneous Oral contraceptives or hormone replacement Sepsis (< 1 month) Serious lung disease, including pneumonia (< 1 month) Abnormal pulmonary function Acute myocardial infarction Congestive heart failure (< 1 month) History of inflammatory bowel disease Medical patient at bed rest Age 61-74 Arthroscopic surgery Major open surgery (> 45 min) Laparoscopic surgery (> 45 min) Malignancy Confined to bed (> 72 hours) Immobilizing plaster cast Central venous access Age >= 75 History of VTE Family history of VTE Factor V Leiden Prothrombin [id number] Lupus anticoagulant Anticardiolipin antibodies Elevated serum homocysteine Heparin-induced thrombocytopenia Other congenital or acquired thrombophilia Stroke (< 1 month) Elective arthroplasty Hip, pelvis, or leg fracture Acute spinal cord injury (< 1 month) Prophylaxis Regimen: Total Risk Factor Score Risk Level Prophylaxis Regimen 0-1 Low Early ambulation 2 Moderate Order ONE of the following: *Sequential Compression Device (SCD) *Heparin 5000 units SQ BID 3-4 Higher Order ONE of the following medications: *Heparin 5000 units SQ TID *Enoxaparin/Lovenox 40 mg SQ daily (WT < 150 kg, CrCl > 30 mL/min) *Enoxaparin/Lovenox 30 mg SQ daily (WT < 150 kg, CrCl > 10-29 mL/min) *Enoxaparin/Lovenox 30 mg SQ BID (WT < 150 kg, CrCl > 30 mL/min) AND/OR *Sequential Compression Device (SCD) 5 or more Highest Order ONE of the following medications: *Heparin 5000 units SQ TID (Preferred with Epidurals) *Enoxaparin/Lovenox 40 mg SQ daily (WT < 150 kg, CrCl > 30 mL/min) *Enoxaparin/Lovenox 30 mg SQ daily (WT < 150 kg, CrCl > 10-29 mL/min) *Enoxaparin/Lovenox 30 mg SQ BID (WT < 150 kg, CrCl > 30 mL/min) AND *Sequential Compression Device (SCD)
[2019-01-06] MEDS ORDERED: Polyethylene Glycol 3350 17 GM Packet PO ONE (15:00)
[2019-01-06] MEDS: Enoxaparin Inj 40 MG/0.4 ML Syringe SQ SCH (15:07)
[2019-01-06] MEDS: Insulin NovoLOG Aspart Correctional Sugar Inj SQ SCH ×2 (17:56→20:33)
--- NOTE | 2019-01-07 07:40 | P.DCO ---
Diagnosis (1) Thoracic stenosis: Status: Acute (2) Weakness: Status: Acute (3) Risk for falls: Status: Acute (4) Gait instability: Status: Acute (5) Dizziness: Status: Acute (6) Impaired activities of daily living: Status: Acute Physical Therapy Order: Evaluate and treat, Improve ambulation and Strength and gait training Instructions: [place] Hallpike/Raphael maneuver Occupational Therapy Order: Evaluate and treat, Improve ADL, Gross motor coordination and Fine motor coordination Case Management Consult Case Management Consult-Home Health: Yes I have seen patient Brent Keller on 01/07/19. My clinical findings support the need for the requested home health care services because: Limited mobility due to disease progression, Deconditioned with increased weakness, Limited ability to care for self and High risk of falls I certify that my clinical findings support that this patient is homebound because: Unsteady gait/balance, Unsafe to leave home unassisted and Unable to use public transportation
[2019-01-07] MEDS: Insulin NovoLOG Aspart Correctional Sugar Inj SQ SCH ×4 (09:03→21:35)
[2019-01-07] MEDS: Pantoprazole Sodium 20 MG DR Tablet PO SCH (09:03)
[2019-01-07] MEDS: Senna/Docusate Sodium 8.6/50 MG Tablet PO SCH ×2 (09:03→21:36)
--- NOTE | 2019-01-07 09:17 | P.PNIM ---
Subjective Interval history: Follow up on patient with left sided weakness. Patient seen and examined. Patient continues to have right sided headache. He says that Tylenol does not help at all. He reports ongoing intermittent dizziness that is nonpositional. He says the Meclizine has not helped at all. He continues to have significant pain in his mid back. He says the numbness in his left leg has improved some. Physical Exam Vital signs: Vital Signs 01/06/19 12:00 01/06/19 16:00 01/06/19 20:00 Temperature 98.1 F 98.3 F 98.0 F Pulse Rate 78 100 H 99 H Respiratory Rate 17 18 18 Blood Pressure 127/68 151/71 H 123/67 Pulse Oximetry 96 96 95 01/06/19 23:55 01/07/19 00:00 01/07/19 04:00 Temperature 97.9 F 97.9 F Pulse Rate 93 H 90 78 Respiratory Rate 18 18 Blood Pressure 150/76 H 154/80 H Pulse Oximetry 95 95 Intake & Output 01/06/19 01/07/19 01/07/19 18:59 06:59 18:59 Weight 62.9 kg Other: # Voids 3 Narrative: GENERAL: WDWN male patient, INAD. Awake and alert. Appears uncomfortable in bed lying on his right side to relieve pressue on left side of his mid back. SKIN: Warm and dry. No generalized rash. HEENT: Atraumatic. Normocephalic. No facial asymmetry noted. Pupils equal and round. No scleral icterus. No nasal discharge. Mucous membranes pink and moist. NECK: Trachea midline. CARDIOVASCULAR: Regular rate and rhythm. RESPIRATORY: No accessory muscle use. Clear to auscultation. Breath sounds equal bilaterally. GASTROINTESTINAL: Abdomen soft, non-tender, nondistended. MUSCULOSKELETAL: Extremities without clubbing, cyanosis, or edema. +tenderness to palpation left mid thoracic paraspinal muscles. NEUROLOGICAL: Awake and alert. No obvious cranial nerve deficits. Motor grossly within normal limits. +Subjective decreased sensation in left leg, improved. Normal speech. PSYCHIATRIC: Appropriate mood and affect; insight and judgment normal. Results Labs CBC & Chem 7: 01/05/19 04:26 01/05/19 04:26 Assessment and Plan (1) Thoracic stenosis: Code(s): M48.04 - Spinal stenosis, thoracic region Status: Acute (2) Weakness: Code(s): R53.1 - Weakness Status: Acute (3) Risk for falls: Code(s): Z91.81 - History of falling Status: Acute (4) Gait instability: Code(s): R26.81 - Unsteadiness on feet Status: Acute (5) Dizziness: Code(s): R42 - Dizziness and giddiness Status: Acute (6) Impaired activities of daily living: Status: Acute Plan 68 yo male with multiple medical problems came for eval of left sided weakness for the past 3 days progressively getting worse. Patient complaints of 3-day of headache, left arm and leg weakness, generalized weakness and associated confusion. Left sided weakness x 3 days r/o CVA Possible TIA Dizziness Hearing loss left ear CT/CTA head neg CTA neck neg MRI head unremarkable trop <0.02 KALIN neg -Neurology following, appreciate assistance -trial of Meclizine. Orthostatic BP measurements negative. Hold home dose of Gabapentin. ?BPPV. PT eval for [place] Hallpike/Raphael maneuver. Patient would likely benefit from ENT evaluation as outpatient. -PT/OT -Holter monitor DDD cervical, thoracic and lumbar spine Thoracic cord compression Chronic low back pain MRI cervical spine shows multilevel degenerative changes worse at C5-6 and C6-7 with moderate to severe neuroforaminal narrowing MRI thoracic spine shows multilevel degenerative changes most notably at T10- T11 level with left paracentral disc protrusion and moderate spinal canal stenosis MRI lumbar spine shows multilevel degenerative changes most notably at L4-5 with disc herniation and facet arthropathy -started on Decadron -evaluated by Dr. Mando MANRIQUE who recommends f/u in 6weeks to discuss thoracic decompression and lumbar microdiscectomy -DW Dr. Clinton who has requested a second opinion with Dr. Saha, consult for Dr. Saha placed in EMR -01/07 - patient evaluated by Dr. Saha who recommended thoracic decompression in several weeks to allow time for recovery from suspected TIA/small infarction. AMIE Clinton who would like for patient to remain on IV Decadron for another day. Trial of topical Lidoderm patch. Dysphagia -MBS revealed mild oropharyngeal dysphagia. ST recommended mechanical soft diet , thin liquids -continue participation with ST Hyperglycemia while on Decadron -accuchek and ISS HTN previously hypotensive, BP meds held. -01/07 BP elevated 154/80, resume home Tenormin dose -continue to hold Hytrin for now -continue to monitor BP and adjust treatment accordingly H/of Anxiety / depression BPH Colon cancer GERD (gastroesophageal reflux disease) Hep C -stable -continue on home medications DVT ppx scd/teds/ lovenox Code Status: FULL Discussed Condition With: patient, nursing staff, Dr. Menchaca, Dr. Clinton Discharge Planning: Not ready for discharge - possible discharge in am pending Neurology clearance Progress Note: Quality VTE Deep Vein Thrombosis/Pulmonary Embolism Present on Admission: No
--- NOTE | 2019-01-07 10:30 | P.PNNEU ---
Subjective Subjective Comments: Subjective. Left leg less numb no weakness. Denies any chest pain or dyspnea Active Medications: Active Medications Acetaminophen (Tylenol) 650 mg PO Q4H PRN PRN Reason: Temp > 100.4 Last Admin: 01/06/19 23:40 Dose: 650 mg Al Hydroxide/Mg Hydroxide (Milk Of Magnesia Liq) 30 ml PO Q12H PRN PRN Reason: Mild Constipation Last Admin: 01/07/19 09:06 Dose: 30 ml Atenolol (Tenormin) 25 mg PO DAILY [facility] Last Admin: 01/05/19 08:40 Dose: 25 mg Bisacodyl (Dulcolax Supp) 10 mg RECTAL DAILY PRN PRN Reason: SEVERE CONSITIPATION Dexamethasone Sodium Phosphate (Decadron Inj) 4 mg IV.PUSH Q6HR [facility] Last Admin: 01/07/19 05:20 Dose: 4 mg Dextrose (D50w Vial) 50 ml IV.PUSH UNSCH PRN PRN Reason: PER HYPOGLYCEMIA PROTOCOL Enoxaparin Sodium (Lovenox Inj) 40 mg SQ Q24H [facility] Last Admin: 01/06/19 15:07 Dose: 40 mg Gabapentin (Neurontin) 600 mg PO TID [facility] Last Admin: 01/05/19 12:00 Dose: 600 mg Glucagon (Glucagon Inj) 1 mg OTHER PRN PRN PRN Reason: for Hypoglycemia Protocol Insulin Aspart (Novolog Insulin Correctional Sugar Inj) [address] [facility]; Protocol Last Admin: 01/07/19 09:03 Dose: 2 unit Lactulose (Lactulose Liq) 30 ml PO DAILY PRN PRN Reason: SEVERE CONSITIPATION Meclizine HCl (Antivert) 25 mg PO Q8HR [facility] Last Admin: 01/07/19 05:21 Dose: 25 mg Ondansetron HCl (Zofran Inj) 4 mg IV.PUSH Q6H PRN PRN Reason: NAUSEA OR VOMITING Pantoprazole Sodium (Protonix) 20 mg PO DAILY [facility] Last Admin: 01/07/19 09:03 Dose: 20 mg Pravastatin Sodium (Pravachol) 40 mg PO QPM [facility] Last Admin: 01/06/19 17:46 Dose: 40 mg Senna/Docusate Sodium (Shantelle-Colace) 1 tab PO BID [facility] Last Admin: 01/07/19 09:03 Dose: 1 tab Sennosides (Senokot) 17.2 mg PO Q12H PRN PRN Reason: Moderate Constipation Last Admin: 01/06/19 12:44 Dose: 17.2 mg Sodium Chloride (Ns Flush) 2 ml IV.FLUSH BID [facility] Last Admin: 01/07/19 09:03 Dose: 2 ml Sodium Chloride (Ns Flush) 2 ml IV.FLUSH PRN PRN PRN Reason: FLUSH AFTER USING IV ACCESS Terazosin HCl (Hytrin) 4 mg PO DAILY [facility] Last Admin: 01/05/19 08:40 Dose: 4 mg Tramadol HCl (Ultram) 50 mg PO Q6H PRN PRN Reason: PAIN SCALE 1 TO 10 Last Admin: 01/07/19 09:03 Dose: 50 mg Zolpidem Tartrate (Ambien) 10 mg PO [facility] Last Admin: 01/06/19 20:34 Dose: 10 mg Allergies/Adverse Reactions: Allergies Allergy/AdvReac Type Severity Reaction Status Date / Time No Known Allergies Allergy Verified 01/04/19 10:31 Review of Systems All other systems reviewed negative except as stated in HPI Physical Exam Vital signs: Vital Signs 01/06/19 12:00 01/06/19 16:00 01/06/19 20:00 Temperature 98.1 F 98.3 F 98.0 F Pulse Rate 78 100 H 99 H Respiratory Rate 17 18 18 Blood Pressure 127/68 151/71 H 123/67 Pulse Oximetry 96 96 95 01/06/19 23:55 01/07/19 00:00 01/07/19 04:00 Temperature 97.9 F 97.9 F Pulse Rate 93 H 90 78 Respiratory Rate 18 18 Blood Pressure 150/76 H 154/80 H Pulse Oximetry 95 95 Intake & Output 01/06/19 01/07/19 01/07/19 18:59 06:59 18:59 Weight 62.9 kg Other: # Voids 3 Narrative: GENERAL: alert, awake, comfortable SKIN: Warm and dry. HEAD: Atraumatic. Normocephalic. EYES: Pupils equal and round. No scleral icterus. ENT: No nasal bleeding or discharge. NECK: Trachea midline. CARDIOVASCULAR: Regular rate and rhythm. RESPIRATORY: No accessory muscle use. Clear to auscultation. GASTROINTESTINAL: Abdomen soft, non-tender, nondistended. MUSCULOSKELETAL: Extremities without clubbing, cyanosis, or edema. NEUROLOGICAL: Awake and alert. Oriented x3, speech fluent, 5/5 all groups right upper and lower extremities, 5-/5 on the left DTR's Left lower extremity, asymmetric hyperreflexia left greater than right leg. Left ankle clonus 3-4 beats PSYCHIATRIC: Appropriate mood and affect; insight and judgment normal. - Constitutional no acute distress - Routine HEENT Exam Head: Present: normocephalic Eye: Present: EOMI Objective Laboratory Results - last 24 hr 01/06/19 01/06/19 01/06/19 11:57 17:55 20:29 POC Glucose 216 H 195 H 217 H 01/07/19 07:59 POC Glucose 162 H Review/Management - Diagnosis (1) Thoracic stenosis Code(s): M48.04 - Spinal stenosis, thoracic region Status: Acute Current Visit: Yes - Review/Management Plan: Asymmetric left lower extremity hyperreflexia with sensory impairment appears to be secondary to focal severe stenosis lower thoracic level causing cord compression Moving both lower extremities Recommendation Neurosurgical follow-up for consideration of decompression; evaluated x2 MRI brain no evidence of TIA or stroke Dr. Milligan to follow in a.m.
[2019-01-07] MEDS ORDERED: Butalbital/APAP/Caff 50/325/40 MG Tablet PO ONE (12:30)
[2019-01-07] MEDS: Lidocaine 5% Patch T-DERMAL SCH (12:54)
[2019-01-07] MEDS: Enoxaparin Inj 40 MG/0.4 ML Syringe SQ SCH (15:29)
[2019-01-08 07:59] VITALS: RESP 18; TEMP 97.9; O2SAT 97
[2019-01-08] MEDS: Insulin NovoLOG Aspart Correctional Sugar Inj SQ SCH ×2 (09:30→14:11)
[2019-01-08] MEDS: Pantoprazole Sodium 20 MG DR Tablet PO SCH (09:31)
[2019-01-08] MEDS: Atenolol 25 MG Tablet PO SCH (09:32)
[2019-01-08] MEDS: Senna/Docusate Sodium 8.6/50 MG Tablet PO SCH (09:32)
[2019-01-08] MEDS: Lidocaine 5% Patch T-DERMAL SCH (09:33)
--- NOTE | 2019-01-08 09:40 | P.PNNEU ---
Subjective Active Medications: Active Medications Acetaminophen (Tylenol) 650 mg PO Q4H PRN PRN Reason: Temp > 100.4 Last Admin: 01/06/19 23:40 Dose: 650 mg Al Hydroxide/Mg Hydroxide (Milk Of Magnesia Liq) 30 ml PO Q12H PRN PRN Reason: Mild Constipation Last Admin: 01/07/19 09:06 Dose: 30 ml Atenolol (Tenormin) 25 mg PO DAILY [facility] Last Admin: 01/08/19 09:32 Dose: 25 mg Bisacodyl (Dulcolax Supp) 10 mg RECTAL DAILY PRN PRN Reason: SEVERE CONSITIPATION Dexamethasone Sodium Phosphate (Decadron Inj) 4 mg IV.PUSH Q6HR [facility] Last Admin: 01/08/19 05:20 Dose: 4 mg Dextrose (D50w Vial) 50 ml IV.PUSH UNSCH PRN PRN Reason: PER HYPOGLYCEMIA PROTOCOL Enoxaparin Sodium (Lovenox Inj) 40 mg SQ Q24H [facility] Last Admin: 01/07/19 15:29 Dose: 40 mg Gabapentin (Neurontin) 600 mg PO TID [facility] Last Admin: 01/05/19 12:00 Dose: 600 mg Glucagon (Glucagon Inj) 1 mg OTHER PRN PRN PRN Reason: for Hypoglycemia Protocol Insulin Aspart (Novolog Insulin Correctional Sugar Inj) 0 unit SQ [facility]; Protocol Last Admin: 01/08/19 09:30 Dose: 1 unit Lactulose (Lactulose Liq) 30 ml PO DAILY PRN PRN Reason: SEVERE CONSITIPATION Lidocaine HCl (Lidoderm 5% Patch.12 Hr) 1 patch T-DERMAL DAILY [facility] Last Admin: 01/08/19 09:33 Dose: Not Given Meclizine HCl (Antivert) 25 mg PO Q8HR [facility] Last Admin: 01/08/19 05:20 Dose: 25 mg Ondansetron HCl (Zofran Inj) 4 mg IV.PUSH Q6H PRN PRN Reason: NAUSEA OR VOMITING Pantoprazole Sodium (Protonix) 20 mg PO DAILY [facility] Last Admin: 01/08/19 09:31 Dose: 20 mg Pravastatin Sodium (Pravachol) 40 mg PO QPM [facility] Last Admin: 01/07/19 18:20 Dose: 40 mg Senna/Docusate Sodium (Shantelle-Colace) 1 tab PO BID [facility] Last Admin: 01/08/19 09:32 Dose: 1 tab Sennosides (Senokot) 17.2 mg PO Q12H PRN PRN Reason: Moderate Constipation Last Admin: 01/06/19 12:44 Dose: 17.2 mg Sodium Chloride (Ns Flush) 2 ml IV.FLUSH BID [facility] Last Admin: 01/08/19 09:32 Dose: 2 ml Sodium Chloride (Ns Flush) 2 ml IV.FLUSH PRN PRN PRN Reason: FLUSH AFTER USING IV ACCESS Terazosin HCl (Hytrin) 4 mg PO DAILY [facility] Last Admin: 01/05/19 08:40 Dose: 4 mg Tramadol HCl (Ultram) 50 mg PO Q6H PRN PRN Reason: PAIN SCALE 1 TO 10 Last Admin: 01/08/19 09:31 Dose: 50 mg Zolpidem Tartrate (Ambien) 10 mg PO HS [facility] Last Admin: 01/07/19 21:36 Dose: 10 mg Allergies/Adverse Reactions: Allergies Allergy/AdvReac Type Severity Reaction Status Date / Time No Known Allergies Allergy Verified 01/04/19 10:31 Physical Exam Vital signs: Vital Signs 01/07/19 12:00 01/07/19 16:00 01/07/19 20:00 Temperature 97.9 F 98.1 F 98.6 F Pulse Rate 80 90 90 Respiratory Rate 17 18 20 Blood Pressure 129/65 134/70 135/73 Pulse Oximetry 95 96 95 01/08/19 00:00 01/08/19 07:58 Temperature 98.2 F 97.9 F Pulse Rate 78 82 Respiratory Rate 20 18 Blood Pressure 141/72 H 150/85 H Pulse Oximetry 96 97 Intake & Output 01/07/19 01/08/19 01/08/19 18:59 06:59 18:59 Weight 62.1 kg Other: # Voids 3 Date of Last Bowel Movement 01/07/19 # Bowel Movements 1 Narrative: sr vff face sym still a little numb left face c/t r [id number] and nl strength all 4 ext no ankle clonus labs neg holter and echo and eeg nl ctax2 neg mrix2 neg cva he has no documented cva he has some likley left periph vestibulopathy I would recommend T spine decompression billy per nusu and i am comfortable waiting just two weeks on results of his neg w/u I dw him that i would not resume work duties until after surgery I have notified dr og of this but defer to tanesha on their timetable Objective Laboratory Results - last 24 hr 01/07/19 01/07/19 01/07/19 12:56 17:32 21:15 POC Glucose 141 H 170 H 211 H 01/08/19 07:32 POC Glucose 155 H Review/Management - Diagnosis (1) Thoracic stenosis Code(s): M48.04 - Spinal stenosis, thoracic region Status: Acute Current Visit: Yes - Review/Management Plan: Asymmetric left lower extremity hyperreflexia with sensory impairment appears to be secondary to focal severe stenosis lower thoracic level causing cord compression Moving both lower extremities Recommendation Neurosurgical follow-up for consideration of decompression; evaluated x2 MRI brain no evidence of TIA or stroke Dr. Milligan to follow in a.m.
[2019-01-08 11:49] VITALS: BP 144/77; PULSE 80
--- NOTE | 2019-01-08 13:36 | P.DS ---
DS: Providers Date of admission: 01/04/19 14:37 Primary care physician: [facility] Consults: 01/04/19 14:18 Consult to Neurology Routine Consulting Provider: Brent Milligan Reason for Consultation: weakness r/o cva Notified:: Office Spoke with:: Martin Date Notified:: 01/04/19 Time Notified:: 14:25 Ordering Provider: SILAS 01/05/19 11:28 Consult to Neurosurgery Routine Consulting Provider: Parth Gilmore Reason for Consultation: please evaluate for significant spinal stenosis, thank you Notified:: Physician Spoke with:: NANCY ELENA/HARJINDER Date Notified:: 01/05/19 Time Notified:: 11:31 Ordering Provider: RADHA 01/06/19 13:48 Consult to Neurosurgery Routine Consulting Provider: Rusty Saha Control Systems Developer:: Rusty Saha Reason for Consultation: please evaluate patient for second opinion,thank you Notified:: Physician Spoke with:: DR. SAHA Date Notified:: 01/06/19 Time Notified:: 14:16 Ordering Provider: RADHA Attending physician on discharge: Fawad Menchaca Anticipated date of discharge: 01/08/19 Brief History from admission: 68 yo male with multiple medical problems came for eval of left sided weakness for the past 3 days progressively getting worse. Patient complaints of 3-day left arm and leg weakness, generalized weakness and headache associated since morning. Weakness seems more in the left leg than the left arm. He also says his left leg feels numb and " buzzing". Says he doesnt have a h/o migraine headaches and is new for him. Says headache is on the top of his head and around the right eye , no change in vision. There is associated confusion, headaches, nausea/vomiting. Denies chest pain, cough, diaphoresis, fever/chills, vertigo, seizures, shortness of breath and syncope. No n/v/d/c. Patient also complaints of chronic back pain. Patient update on day of discharge: Patient seen and examined. He denies any complaints of headache. He continues to have intermittent dizziness. He denies any numbness left side of his face. He denies any decrease in strength. He states the numbness in the left leg is much improved. He denies any fever , chills, vision changes, lightheadedness, nausea/vomiting, shortness of breath , chest pain or abdominal pain. Discussed with nursing staff and no adverse events noted overnight. DS: Diagnosis Discharge Diagnosis (1) Thoracic stenosis: Status: Acute (2) Weakness: Status: Acute (3) Risk for falls: Status: Acute (4) Gait instability: Status: Acute (5) Dizziness: Status: Acute (6) Impaired activities of daily living: Status: Acute DS: Summary Patient admitted with complaints of progressive left-sided weakness times 3 days. Patient also reported complaints of left-sided facial numbness. Workup was unremarkable including negative CT/CTA of the head and CTA neck. Patient was seen in consultation by neurology. He underwent an echocardiogram which revealed EF of 55-60%. EEG was unremarkable. Holter was normal. MRI of the brain revealed minimal periventricular ischemic white matter demyelination was otherwise unremarkable. Cervical spine MRI showed multilevel degenerative changes most notably at C5-6 and C6-7 with moderate to severe neural foramen. MRI of the lumbar spine showed multilevel degenerative changes with facet arthropathy but no significant canal stenosis. MRI thoracic spine was significant for focal moderate spinal canal stenosis at T10-T11. Patient was started on IV Decadron by neurology. He was seen in consultation by neurosurgery who recommended thoracic decompression as well as a lumbar microdiscectomy in 6 weeks time due to recent mild stroke. Patient was then seen in consultation by another neurosurgeon for second opinion who essentially agreed with the initial neurosurgical recommendations. Of note, neurology stated the patient had no documented CVA. Patient did have ongoing issues with intermittent dizziness felt most likely secondary to left peripheral vestibulopathy patient was recommended to follow-up with the ENT specialist following discharge. On the day of discharge, I discussed with neurosurgical team directly Dr. Milligan's recommendation and was informed that Dr. Gilmore is recommending discharge without steroids at this time and to follow-up with him as outpatient to discuss scheduling of surgical intervention. Patient reached the maximal benefit of his hospitalization and was discharged to home. Time Spent with Patient Total time spent providing and/or coordinating discharge services: Greater than 30 minutes Quality: VTE Deep Vein Thrombosis/Pulmonary Embolism Present on Admission: No Exam Narrative Exam Narrative: GENERAL: WDWN male patient, INAD. Awake and alert. SKIN: Warm and dry. No generalized rash. HEENT: Atraumatic. Normocephalic. Pupils equal and round. No scleral icterus. No nasal discharge. Mucous membranes pink and moist. NECK: Trachea midline. CARDIOVASCULAR: Regular rate and rhythm. RESPIRATORY: No accessory muscle use. Clear to auscultation. Breath sounds equal bilaterally. GASTROINTESTINAL: Abdomen soft, non-tender, nondistended. MUSCULOSKELETAL: Extremities without clubbing, cyanosis, or edema. +tenderness to palpation left mid thoracic paraspinal muscles. NEUROLOGICAL: Awake and alert. No obvious cranial nerve deficits. Motor grossly within normal limits. +Subjective decreased sensation in left leg, improved. Normal speech. PSYCHIATRIC: Appropriate mood and affect; insight and judgment normal. Results Labs on day of discharge: Labs from last 24 hours 01/08/19 01/08/19 01/07/19 12:37 07:32 21:15 POC Glucose 212 H 155 H 211 H 01/07/19 17:32 POC Glucose 170 H Impressions ITS Impressions Head CT 01/04/19 10:29 CONCLUSION: 1. Negative noncontrast CT brain. . Head CTA 01/04/19 10:29 CONCLUSION: 1. Negative CTA Head. . Neck CTA 01/04/19 10:29 CONCLUSION: 1. Negative CTA Carotid. Cervical Spine MRI 01/04/19 17:11 CONCLUSION: 1. No significant abnormal enhancement or evidence for mass as questioned. 2. Multilevel degenerative spondylosis of the cervical spine most notably at C5 -6 and C6-7 with resultant moderate to severe neural foraminal narrowing at both levels. 3. Please see above for detailed description of each level. Head MRI 01/05/19 00:00 CONCLUSION: 1. Unremarkable and stable MRI of the brain compared to the prior examination of 01/04/2019. Lumbar Spine MRI 01/05/19 00:00 CONCLUSION: 1. There is a combination of diffuse broad-based bulging and right paracentral disc protrusion/extrusion with some slight extension of disc material behind the body of L5 on the right. 2. There is broad-based bulging at multiple levels including T12-L1, L1-L2, L2- L3 and L3-L4. 3. There is bilateral facet arthritis at multiple levels. 4. No significant spinal canal stenosis. 5. Primary bony degenerative changes with disc degeneration and disc space narrowing at multiple levels. There is some mild chronic loss of height of L1 with no abnormal bone marrow edema. Thoracic Spine MRI 01/05/19 00:00 CONCLUSION: 1. Focal moderate spinal canal stenosis is noted at T10-T11. There is moderate broad-based bulging at this level with focal left paracentral disc protrusion. 2. Left paracentral disc protrusion at T9-T10 3. Focal mild right paracentral bulging T1-T2. 4. Mild right paracentral bulging and left paracentral bulging at T2-T3 5. Small left paracentral bulging T3-T4. 6. Focal mild left paracentral bulging T6-T7 and mild broad-based bulging T11- T12 Videofluoroscopic Swallow 01/05/19 00:00 CONCLUSION: Mild hypopharyngeal retention and some of the swallows. No evidence of laryngeal penetration or aspiration. Discharge Plan Discharge Disposition Patient Disposition: /Home Health Service Discharge Condition Condition: Stable Discharge Order Discharge Orders: Discharge Order (Routine); Ordered 01/08/19 Ordered By: Tia Persaud Discharge Details Anticipated Discharge Date: 01/07/19 Physicians Team Primary Care Provider: [facility] Attending Provider: Fawad Menchaca Other Providers: Brent Milligan ; Parth Gilmore ; Rusty Saha Rxs /Orders / Referrals /Forms Prescriptions: New aspirin 81 mg Tablet,Delayed Release (Dr/Ec) 81 mg PO DAILY 30 Days Qty: 30 RF: 0 Continue gabapentin 600 mg Tablet 600 mg PO TID RF: 0 atenolol 25 mg Tablet 25 mg PO DAILY RF: 0 tramadol 50 mg Tablet 50 mg PO Q6H PRN (Reason: Pain) RF: 0 meloxicam 7.5 mg Tablet 7.5 mg PO DAILY RF: 0 terazosin 2 mg Capsule 4 mg PO DAILY RF: 0 simvastatin 20 mg Tablet 20 mg PO QPM RF: 0 omeprazole 20 mg Capsule,Delayed Release(Dr/Ec) 20 mg PO DAILY RF: 0 zolpidem 10 mg Tablet 10 mg PO HS RF: 0 Referrals: Ear, Nose, Throat Specialist [Outside] - See Instructions () Brent Milligan MD [Physician] - See Instructions ( Please call the physician 's office to book the appointment to be seen within one week. Will need authorization from insurance before appointment can be scheduled ) [facility] [OT/PT/ST Therapy Services] - See Instructions ( Vestibular Rehab) [facility] [Primary Care Provider] - See Instructions ( Please call the physician's office to book the appointment to be seen within one week.) Parth Gilmore MD [Physician] - 02/19/19 10:00 am ( Please call the physician 's office to book the appointment to be seen within one week.) Discharge Instructions Patient Printed Instructions: Aspirin (By mouth), Meloxicam (By mouth) Status ED Status: Left Department
[2019-01-08] MEDS: Enoxaparin Inj 40 MG/0.4 ML Syringe SQ SCH (14:10)
--- NOTE | 2019-01-08 14:24 | P.PNNS ---
Subjective Interval history: c/o of mid and low back pain, no new complaints <SupaLian - Last Filed: 01/08/19 14:19> Physical Exam Vital signs: Vital Signs 01/07/19 16:00 01/07/19 20:00 01/08/19 00:00 Temperature 98.1 F 98.6 F 98.2 F Pulse Rate 90 90 78 Respiratory Rate 18 20 20 Blood Pressure 134/70 135/73 141/72 H Pulse Oximetry 96 95 96 01/08/19 07:58 01/08/19 11:48 Temperature 97.9 F 97.9 F Pulse Rate 82 80 Respiratory Rate 18 18 Blood Pressure 150/85 H 144/77 H Pulse Oximetry 97 97 Intake & Output 01/07/19 01/08/19 01/08/19 18:59 06:59 18:59 Weight 62.1 kg Other: # Voids 3 Date of Last Bowel Movement 01/07/19 # Bowel Movements 1 Narrative: Awake, alert and oriented x 3 NAD normal speech CNII-XII: intact Motor: Mild Left hemiparesis 5-/5 Sensory: decreased LT, and PP in left hemibody distribution Left Achilles hyper-reflexia c/w Thoracic stenosis ambulating appears mildly ataxic and with a bent forward posture <SupaLian - Last Filed: 01/08/19 14:19> Vital signs: Vital Signs 01/08/19 00:00 01/08/19 07:58 01/08/19 11:48 Temperature 98.2 F 97.9 F 97.9 F Pulse Rate 78 82 80 Respiratory Rate 20 18 18 Blood Pressure 141/72 H 150/85 H 144/77 H Pulse Oximetry 96 97 97 Intake & Output 01/08/19 01/08/19 01/09/19 06:59 18:59 06:59 Weight 62.1 kg Other: # Voids 3 <Parth Gilmore - Last Filed: 01/08/19 23:05> Assessment and Plan - Plan 68 yo male s/p mild stroke 3 days ago now resolving. No significant restriction of diffusion albeit small stroke. c/o low back and mid back pain. Has a right sided L4/5 disc herniation and just completed 14 weeks of PT at [facility] with no significant improvement. T- spine MRI shows moderate disc herniation and stenosis with Some Thoracic myelopathy. Await pending studies. Will need Lumbar flex/ext views. Will follow 01/08/2019 remains somewhat myelopathic with low back and mid back pain, suspected patient may have suffered small stroke, will restart on baby ASA which he was taking at home, start on muscle relaxants, refer to outpatient vestibular rehab for Vertigo follow up [facility] in 1 month to discuss surgical decompression patient is clear to discharge from [facility] standpoint <Lian Cowart - Last Filed: 01/08/19 14:19> - Attending Attestation I have personally seen and examined the patient, reviewed pertinent labs and imaging studies with the Neurosurgery team. I agree with Ms. Cowart's ( Neurosurgery PA), assessment as well as plan of care. <Parth Gilmore - Last Filed: 01/08/19 23:05>
== END 2019-01-08 16:18 | disposition home health service (06) | DRG 551 ==
LOC: NEDA 10:15 → NEPE 10:15 → NEDA 16:25 → N07 16:52
PROVIDERS: ADMIT Hospitalist; ATTEND Hospitalist
DX: I50.9 Heart failure, unspecified; R29.714 NIHSS score 14; Z91.81 History of falling; M51.26 Other intervertebral disc displacement, lumbar region; R73.9 Hyperglycemia, unspecified; M46.96 Unspecified inflammatory spondylopathy, lumbar region; M48.061 Spinal stenosis, lumbar region without neurogenic claudication; H93.19 Tinnitus, unspecified ear; R27.0 Ataxia, unspecified; K21.9 Gastro-esophageal reflux disease without esophagitis; K57.90 Diverticulosis of intestine, part unspecified, without perforation or abscess without bleeding; M51.36 Other intervertebral disc degeneration, lumbar region; E78.00 Pure hypercholesterolemia, unspecified; M62.81 Muscle weakness (generalized); M48.04 Spinal stenosis, thoracic region; H91.92 Unspecified hearing loss, left ear; G89.29 Other chronic pain; R29.2 Abnormal reflex; B19.20 Unspecified viral hepatitis C without hepatic coma; R13.12 Dysphagia, oropharyngeal phase; Z79.899 Other long term (current) drug therapy; M51.24 Other intervertebral disc displacement, thoracic region; J45.909 Unspecified asthma, uncomplicated; I11.0 Hypertensive heart disease with heart failure; M50.30 Other cervical disc degeneration, unspecified cervical region; Z87.891 Personal history of nicotine dependence; Z87.442 Personal history of urinary calculi; G81.94 Hemiplegia, unspecified affecting left nondominant side; I95.9 Hypotension, unspecified; Z90.49 Acquired absence of other specified parts of digestive tract; N40.0 Benign prostatic hyperplasia without lower urinary tract symptoms; Z85.038 Personal history of other malignant neoplasm of large intestine; G95.20 Unspecified cord compression; R51 Headache; I63.9 Cerebral infarction, unspecified
CPT/HCPCS: 70450; 70496; 70498; 70551; 70553; 72146; 72148; 72156; 74230; 80048; 80061; 80076; 81001; 82140; 82550; 82607; 82948; 82962; 83036; 84484; 85025; 85610; 85651; 85652; 85730; 86038; 86140; 87275; 87276; 87804; 90774; 90775; 90784; 92526; 92610; 92611; 93005; 93225; 93306; 95819; 96374; 96375; 97112; 97163; 97167; 97530; 99285; A9585; C8952; G0195; G0196; G8987; G8988; J1100; J1650; J1815; J2060; J2270; J2405; J2765; J7030; Q9967